=== PATIENT | male | born 1955 | race Two or more races ===

== ENCOUNTER 2017-01-25 10:55 | Emergency (ER) | payer MEDICARE, BC, OTHER ==
[2017-01-25 11:02] VITALS: BP 138/92
[2017-01-25] MEDS ORDERED: DOXYcycline CAP(*) 100 MG PO ONE (11:20)
--- NOTE | 2017-01-25 11:51 | ED ---
Nando Bailey Gabriel, scribed for Antony Oneal MD on 01/25/17 at 1120 . Bite Injury/Animal - HPI Summary HPI Summary: This patient is a 61 year old M presenting to [facility] accompanied by family with a chief complaint of a tick by his right eye since this morning. The patient rates the pain 1/10 in severity. Patient reports soreness on the side of his face around tick. - History of Current Complaint Chief Complaint: EDAnimalBite Stated Complaint: TICK IN RIGHT EYE Time Seen by Provider: 01/25/17 11:04 Hx Obtained From: Patient Onset of Injury: Resolved - doctor Jm removed the tick Pain Intensity: 1 Pain Scale Used: 0-10 Numeric Animal Control Notified: No - Allergies/Home Medications Allergies/Adverse Reactions: Allergies Allergy/AdvReac Type Severity Reaction Status Date / Time No Known Allergies Allergy Verified 01/25/17 11:02 PMH/Surg Hx/FS Hx/Imm Hx Previously Healthy: No Endocrine/Hematology History: Reports: Hx Thyroid Disease Denies: Hx Diabetes Cardiovascular History: Reports: Hx Hypertension GI History: Reports: Hx Gastroesophageal Reflux Disease History: Reports: Hx Renal Disease - 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 HERNIA REPAIR. FOOT SURGERY Hx Anesthesia Reactions: No Infectious Disease History: No Infectious Disease History: Denies: Traveled Outside the [place] in Last 30 Days - Family History Known Family History: Positive: Cardiac Disease, Diabetes - Social History Alcohol Use: Occasionally Alcohol Amount: 3 beer/month Substance Use Type: Reports: None Smoking Status (MU): Never Smoked Tobacco Have You Smoked in the Last Year: No Review of Systems Negative: Fever Positive: Other - pain near right eye Positive: Other - tick in skin near right eye All Other Systems Reviewed And Are Negative: Yes Physical Exam - Summary Physical Exam Summary: The patient is well-nourished in no acute distress and in no acute pain. The skin is warm and dry and skin color reflects adequate perfusion. HEENT: ~The head is normocephalic and atraumatic. The pupils are equal and reactive. The conjunctivae are clear and without drainage. ~Nares are patent and without drainage. ~Mouth reveals moist mucous membranes and the throat is without erythema and exudate. ~The external ears are intact. The ear canals are patent and without drainage. The tympanic membranes are intact. Neck is supple with full range of motion and non-tender. There are no carotid bruits. ~There is no neck vein distension. Respiratory: Chest is non-tender. ~Lungs are clear to auscultation and breath sounds are symmetrical and equal. Cardiovascular: Heart is regular rate and rhythm. ~There is no murmur or rub auscultated. ~~There is no peripheral edema and pulses are symmetrical and equal. Abdomen: The abdomen is soft and non-tender. ~There are normal bowel sounds heard in all four quadrants and there is no organomegaly palpated. Musculoskeletal: There is no back pain noted. ~Extremities are non-tender with full range of motion. ~There is good capillary refill. ~There is no peripheral edema or calf tenderness elicited. Neurological: Patient is alert and oriented to person, place and time. ~The patient has symmetrical motor strength in all four extremities. ~Cranial nerves are grossly intact. Deep tendon reflexes are symmetrical and equal in all four extremities. Psychiatric: The patient has an appropriate affect and does not exhibit any anxiety or depression. Triage Information Reviewed: Yes Vital Signs On Initial Exam: Initial Vitals Temp Pulse Resp BP Pulse Ox 97.0 F 79 17 138/92 100 01/25/17 10:59 01/25/17 10:59 01/25/17 10:59 01/25/17 10:59 01/25/17 10:59 Vital Signs Reviewed: Yes Diagnostics - Vital Signs Vital Signs Temp Pulse Resp BP Pulse Ox 01/25/17 10:59 97.0 F 79 17 138/92 100 - Laboratory Lab Statement: Any lab studies that have been ordered have been reviewed, and results considered in the medical decision making process. Bite Injury Course/Dx - Course Course Of Treatment: Mr. Garcia came in with a deer tick in the right lateral tarsal junction. I removed it easily with a tick remover. It was not engorged and likely there less than 36 hours but he took a dose of doxycycline which I think was reasonable to prevent any infection in that location. - Diagnoses Provider Diagnosis: Tick bite with subsequent removal of tick Discharge - Discharge Plan Condition: Stable Disposition: HOME Patient Education Materials: Doxycycline (By mouth) Referrals: Alannah Mckeon MD [Primary Care Provider] - Additional Instructions: Follow up with your primary care provider in 3 days. RETURN TO THE EMERGENCY DEPARTMENT FOR CHANGING OR WORSENING SYMPTOMS The documentation as recorded by the Nando mathis Gabriel accurately reflects the service I personally performed and the decisions made by me, Atnony Oneal MD.
== END 2017-01-25 11:57 | disposition home or self-care (01) ==
LOC: ED 10:55
DX: S00.261A Insect bite (nonvenomous) of right eyelid and periocular area, initial encounter (principal); W57.XXXA Bitten or stung by nonvenomous insect and other nonvenomous arthropods, initial encounter; Y93.9 Activity, unspecified; Y92.9 Unspecified place or not applicable
CPT/HCPCS: 99281; A9270-GY

== ENCOUNTER 2017-03-16 18:27 | Emergency (ER) | payer MEDICARE, BC, OTHER ==
[2017-03-16] MEDS ORDERED: Lidocaine 1%* 5 ML VIAL INJ ONE (19:09)
--- NOTE | 2017-03-16 19:56 | ED ---
Lower Extremity - HPI Summary HPI Summary: 61M presents with fish hook in sole of right foot today. He states he was working on fly fish hooks and must have dropped one and it got stuck in his sock. He states it felt like something was stuck in his shoe. He has neuropathy in his feet due to DM so he does not always feel something. He believes is his tetanus is up to date as he had previous fish hooks in his hands and believes last one was 3 years ago and had a tetanus then. no active bleeding to the site. 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 HERNIA REPAIR. FOOT SURGERY Hx Anesthesia Reactions: No - Immunization History Date of Tetanus Vaccine: UTD Date of Influenza Vaccine: NO Infectious Disease History: No Infectious Disease History: Denies: Traveled Outside the [place] in Last 30 Days - Family History Known Family History: Positive: Cardiac Disease, Diabetes - Social History Alcohol Use: None Alcohol Amount: 3 beer/month Substance Use Type: Reports: None Smoking Status (MU): Never Smoked Tobacco Have You Smoked in the Last Year: No Review of Systems Negative: Fever Negative: Chest Pain Negative: Shortness Of Breath Positive: Other - fish hook in sole of right foot All Other Systems Reviewed And Are Negative: Yes Physical Exam Triage Information Reviewed: Yes Vital Signs On Initial Exam: Initial Vitals Temp Pulse Resp BP Pulse Ox 98.9 F 90 20 129/88 98 03/16/17 18:34 03/16/17 18:34 03/16/17 18:34 03/16/17 18:34 03/16/17 18:34 Vital Signs Reviewed: Yes Appearance: Positive: Well-Appearing Skin: Positive: Warm, Dry, Other - fish hook in sole of right foot Head/Face: Positive: Normal Head/Face Inspection Eyes: Positive: Normal, Conjunctiva Clear Respiratory/Lung Sounds: Positive: Clear to Auscultation, Breath Sounds Present Cardiovascular: Positive: Normal, RRR Musculoskeletal: Positive: Strength/ROM Intact - right foot, Other - good pulses , capillary refill<2 secs Neurological: Positive: Normal Psychiatric: Positive: Normal - Tyree Coma Scale Coma Scale Total: 15 Procedures - Procedure Summary Procedure Summary: fish hook in right foot cleaned with betadaine apply lidocaine to area push susanna through and broke it, pulled hook back through Diagnostics - Vital Signs Vital Signs Temp Pulse Resp BP Pulse Ox 03/16/17 18:34 98.9 F 90 20 129/88 98 - Laboratory Lab Statement: Any lab studies that have been ordered have been reviewed, and results considered in the medical decision making process. Lower Extremity Course/Dx - Course Course Of Treatment: 61M presents with fish hook in sole of right foot today. He states he was working on fly fish hooks and must have dropped one and it got stuck in his sock. He states it felt like something was stuck in his shoe. He has neuropathy in his feet due to DM so he does not always feel something. He believes is his tetanus is up to date as he had previous fish hooks in his hands and believes last one was 3 years ago and had a tetanus then. no active bleeding to the site. on exam has fish hook in right foot. placed lidocaine in area and pushed susanna through and broke it and pulled hook back through. told to do warm soaks of area and to follow up with primary if notice any signs of infection. patient understand and agrees with plan. - Diagnoses Differential Diagnosis/HQI/PQRI: Positive: Cellulitis, Foreign Body, Other - laceration Provider Diagnoses: Foreign body in right foot Discharge - Discharge Plan Condition: Good Disposition: HOME Patient Education Materials: Soft Tissue Foreign Body (ED) Referrals: Alannah Mckeon MD [Primary Care Provider] - Additional Instructions: Do warm soaks of area twice a day Return to ED if develop any signs of infection such as fever or spreading redness or any new or worsening symptoms
[2017-03-16 20:06] VITALS: BP 124/82
== END 2017-03-16 20:05 | disposition home or self-care (01) ==
LOC: ED 18:27
DX: S91.341A Puncture wound with foreign body, right foot, initial encounter (principal); W22.8XXA Striking against or struck by other objects, initial encounter; Y93.9 Activity, unspecified; Y92.9 Unspecified place or not applicable; E11.40 Type 2 diabetes mellitus with diabetic neuropathy, unspecified; E07.9 Disorder of thyroid, unspecified; I10 Essential (primary) hypertension; K21.9 Gastro-esophageal reflux disease without esophagitis; N28.1 Cyst of kidney, acquired; Z90.89 Acquired absence of other organs
CPT/HCPCS: 99282

== ENCOUNTER 2018-10-22 12:18 | Observation (INO) | payer MEDICARE, BC ==
[2018-10-22 12:54] LABS: ABS Basophils 0.1 10^3/ul (0-0.2); ABS Eosinophils 0.1 10^3/ul (0-0.6); ABS Lymphocytes 1.2 10^3/ul (1.0-4.8); ABS Monocytes 0.4 10^3/ul (0-0.8); Hematocrit 47 % (42-52); Hemoglobin 16.2 g/dL (14.0-18.0); Lymphocyte % 20.7 %; Mean Corpuscular HGB Conc 35 g/dL (31-36); Mean Corpuscular Hemoglobin 33 pg (27-31); Mean Corpuscular Volume 95 fL (80-94); Platelet Count 185 10^3/uL (150-450); Red Blood Count 4.94 10^6 /uL (4.18-5.48); Red Cell Distribution Width 13 % (10-15); White Blood Count 5.7 10^3/uL (3.5-10.8)
[2018-10-22 13:05] LABS: INR 1.03 (0.82-1.09)
[2018-10-22 13:10] LABS: Albumin/Globulin Ratio 1.2 (1-3); BUN/Creatinine Ratio 22.7 (8-20); Calcium 9.2 mg/dL (8.6-10.3); EGFR African American 65.9 (>60); EGFR Non-African American 54.4 (>60); Globulin 3.3 g/dL (2-4); Potassium 4.2 mmol/L (3.5-5.0); Total Bilirubin 0.5 mg/dL (0.2-1.0); Total Protein 7.3 g/dL (6.4-8.9)
[2018-10-22 13:11] LABS: Troponin I 0.01 ng/mL (<0.04)
--- NOTE | 2018-10-22 15:27 | ED ---
HPI Chest Pain - HPI Summary HPI Summary: Patient complains of intermittent chest pain with exertion 1 month. Denies associated SOB. No active CP here in ED. Chest pain described as a mild pressure, midsternal, no radiation, improves with rest. No prior cardiac history. Denies fever, cough, sore throat, SOB, N/V/D, abdominal pain, change in urine, change in BM. Medical history is HTN, hypothyroid, neuropathy. Patient states history of stress test 15 years ago which was negative. On smoker, denies EtOH or recreational drug use. Positive family history, father had [place] at age 50. - History of Current Complaint Chief Complaint: EDChestPainROMI Time Seen by Provider: 10/22/18 14:44 Hx Obtained From: Patient Onset/Duration: Started Weeks Ago Timing: Intermittent, Lasting Minutes Initial Severity: Mild Current Severity: None Pain Intensity: 0 Pain Scale Used: 0-10 Numeric Chest Pain Location: Mid Sternal Chest Pain Radiates: No Character: Pressure/Squeezing Aggravating Factor(s): Exertion Alleviating Factor(s): Rest Associated Signs and Symptoms: Positive: Chest Pain - Allergy/Home Medications Allergies/Adverse Reactions: Allergies Allergy/AdvReac Type Severity Reaction Status Date / Time No Known Allergies Allergy Verified 10/24/18 05:21 Home Medications: Home Medications Immun Glob G(IgG)-Ifas/Glycine [Panzyga 10% (2.5 G/25 ml) Vial] 25 ml IV Q14D [History Confirmed 10/22/18] Sildenafil Citrate [Viagra] 100 mg PO DAILY PRN 10/22/18 [History Confirmed 02/28] Tadalafil [Cialis] 20 mg PO DAILY PRN 10/22/18 [History Confirmed 10/22/18] PMH/Surg Hx/FS Hx/Imm Hx Endocrine/Hematology History: Reports: Hx Thyroid Disease Denies: Hx Diabetes Cardiovascular History: Reports: Hx Hypertension Respiratory History: Denies: Hx Chronic Obstructive Pulmonary Disease (COPD) GI History: Reports: Hx Gastroesophageal Reflux Disease History: Reports: Hx Renal Disease - MULTI RENAL 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 HERNIA REPAIR. FOOT SURGERY Hx Anesthesia Reactions: No - Immunization History Date of Tetanus Vaccine: UTD Date of Influenza Vaccine: NO Infectious Disease History: No Infectious Disease History: Denies: Traveled Outside the [place] in Last 30 Days - Family History Known Family History: Positive: Cardiac Disease, Diabetes - Social History Alcohol Use: 2 beer/month Alcohol Amount: 3 beer/month Substance Use Type: Reports: None Smoking Status (MU): Never Smoked Tobacco Have You Smoked in the Last Year: No Review of Systems Constitutional: Negative Eyes: Negative ENT: Negative Positive: Chest Pain Respiratory: Negative Gastrointestinal: Negative Genitourinary: Negative Musculoskeletal: Negative Skin: Negative Neurological: Negative Psychological: Normal All Other Systems Reviewed And Are Negative: Yes Physical Exam - Summary Physical Exam Summary: Chest pain nonreproducible. Triage Information Reviewed: Yes Vital Signs On Initial Exam: Initial Vitals Temp Pulse Resp BP Pulse Ox 98.4 F 82 18 144/93 100 10/22/18 12:22 10/22/18 12:22 10/22/18 12:22 10/22/18 12:22 10/22/18 12:22 Vital Signs Reviewed: Yes Appearance: Positive: Well-Appearing Skin: Positive: Warm Head/Face: Positive: Normal Head/Face Inspection Eyes: Positive: Normal ENT: Positive: Normal ENT inspection Neck: Positive: Supple Respiratory/Lung Sounds: Positive: Clear to Auscultation Cardiovascular: Positive: Normal Abdomen Description: Positive: Nontender Musculoskeletal: Positive: Normal Neurological: Positive: Normal Psychiatric: Positive: Normal AVPU Assessment: Alert - Tyree Coma Scale Best Eye Response: 4 - Spontaneous Best Motor Response: 6 - Obeys Commands Best Verbal Response: 5 - Oriented Coma Scale Total: 15 Diagnostics - Vital Signs Vital Signs Temp Pulse Resp BP Pulse Ox 10/22/18 14:15 97.8 F 93 18 139/93 97 10/22/18 12:22 98.4 F 82 18 144/93 100 - Laboratory Lab Results: Lab Results 10/22/18 10/22/18 10/22/18 Range/Units 12:45 12:45 12:45 WBC 5.7 (3.5-10.8) 10^3/uL RBC 4.94 (4.18-5.48) 10^6 /uL Hgb 16.2 (14.0-18.0) g/dL Hct 47 (42-52) % MCV 95 H (80-94) fL MCH 33 H (27-31) pg MCHC 35 (31-36) g/dL RDW 13 (10-15) % Plt Count 185 (150-450) 10^3/uL MPV 9.0 (7.4-10.4) fL Neut % (Auto) 69.8 % Lymph % (Auto) 20.7 % [place] % (Auto) 7.6 % Eos % (Auto) 1.0 % Baso % (Auto) 0.9 % Absolute Neuts (auto) 4.0 (1.5-7.7) 10^3/ul Absolute Lymphs (auto) 1.2 (1.0-4.8) 10^3/ul Absolute Monos (auto) 0.4 (0-0.8) 10^3/ul Absolute Eos (auto) 0.1 (0-0.6) 10^3/ul Absolute Basos (auto) 0.1 (0-0.2) 10^3/ul Absolute Nucleated RBC 0.0 10^3/ul Nucleated RBC % 0.0 INR (Anticoag Therapy) 1.03 (0.82-1.09) Sodium 137 (135-145) mmol/L Potassium 4.2 (3.5-5.0) mmol/L Chloride 106 (101-111) mmol/L Carbon Dioxide 26 (22-32) mmol/L Anion Gap 5 (2-11) mmol/L BUN 30 H (6-24) mg/dL Creatinine 1.32 H (0.67-1.17) mg/dL Est GFR ( Amer) 65.9 (>60) Est GFR (Non-Af Amer) 54.4 (>60) BUN/Creatinine Ratio 22.7 H (8-20) Glucose 96 (70-100) mg/dL Calcium 9.2 (8.6-10.3) mg/dL Total Bilirubin 0.50 (0.2-1.0) mg/dL AST 24 (13-39) U/L ALT 20 (7-52) U/L Alkaline Phosphatase 63 (34-104) U/L Troponin I 0.01 (<0.04) ng/mL Total Protein 7.3 (6.4-8.9) g/dL Albumin 4.0 (3.2-5.2) g/dL Globulin 3.3 (2-4) g/dL Albumin/Globulin Ratio 1.2 (1-3) Result Diagrams: 10/22/18 12:45 10/22/18 12:45 Lab Statement: Any lab studies that have been ordered have been reviewed, and results considered in the medical decision making process. Chest Pain Course/Dx - Course Course Of Treatment: Patient complains of intermittent chest pain with exertion 1 month. Denies associated SOB. No active CP here in ED. Chest pain described as a mild pressure, midsternal, no radiation, improves with rest. No prior cardiac history. Denies fever, cough, sore throat, SOB, N/V/D, abdominal pain, change in urine, change in BM. Medical history is HTN, hypothyroid, neuropathy. Patient states history of stress test 15 years ago which was negative. On smoker, denies EtOH or recreational drug use. Positive family history, father had [place] at age 50. Vital signs within normal limits. Creatinine 1.32, patient otherwise baseline. Serial troponins negative. Labs unremarkable. EKG sinus rhythm. Chest x-ray unremarkable. Heart score 6. Patient admitted to hospitalist - Diagnoses Provider Diagnoses: Exertional angina Discharge - Sign-Out/Discharge Documenting (check all that apply): Patient Departure Patient Received Moderate/Deep Sedation with Procedure: No - Discharge Plan Condition: Fair Disposition: ADMITTED TO [facility] - Billing Disposition and Condition Condition: FAIR Disposition: Admitted to [facility] - Attestation Statements Provider Attestation: I was available for consultation for this patient. I did not evaluate the patient or participate in any medical decision making or disposition decisions unless I am specifically named in the chart as having consulted on the patient. If I have consulted on the patient, please see my own ED note on the patient encounter. Radha Vazquez MD
[2018-10-22] MEDS ORDERED: Naproxen TAB* 375 MG PO PRN (16:33)
--- NOTE | 2018-10-22 16:41 | ADMNOTE ---
Subjective Date of Service: 10/22/18 Interval History: ADMISSION HISTORY AND PHYSICAL EXAM: Allergies Allergy/AdvReac Type Severity Reaction Status Date / Time No Known Allergies Allergy Verified 08/22/18 08:06 Home Medications Medication Instructions Recorded Confirmed Type Levothyroxine TAB* [Synthroid TAB*] 125 mcg PO DAILY 01/17/12 08/22/18 History Omeprazole CAP (NF) [Prilosec CAP*] 20 mg PO DAILY 01/17/12 08/22/18 History Losartan TAB* [Cozaar TAB*] 50 mg PO DAILY 01/29/15 08/22/18 History Naproxen TAB* [Naprosyn 375 mg 375 mg PO Q6H PRN 05/10/17 08/22/18 History TAB*] Cholecalciferol (Vitamin D3) 2,000 unit PO DAILY 10/25/17 08/22/18 History [Vitamin D3] Gabapentin 300 mg PO SEE INSTRUCTIONS PRN 04/17/18 08/22/18 History Hemp Oil 2 tbsp PO DAILY 08/22/18 History HPI: For the past month the patient consistently experiences lower sternal pressure when he walks his dog up a hill. He does not stop walking and the pressure subsides when he reaches the crest of the hill. No associated sx's. This is the heaviest exertion that he does. Family History: Findings - Father had [place] age 50, age 66 of [place]. Mother A& W. 2 younger sibs A&W. Social History: Findings - Lives with his who is his SDM. Never smoked. 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 Past Medical History: Findings - BL hernia repairs. Sensory neuropathy treated with IVIG q [address] Ibanez. HTN, hypothyroid. Review of Systems - Measurements Intake and Output: Intake and Output Last 24 Hours 10/20/18 10/21/18 10/22/18 10/23/18 06:59 06:59 06:59 06:59 Weight 210 lb - Review of Systems Constitutional Symptoms: Negative: Weight Gain, Weight Loss, Weakness, Fatigue, Fever, Night Sweats, Unexplained Falls, Other Dermatology: Positive: Normal HEENT: Positive: Normal Eyes: Positive: Normal Thyroid: Positive: Primary Hypothyroidism Cardiology: Positive: Chest Pain Gastroenterology: Positive: Normal Genital - Urinary: Positive: Normal Musculoskeletal: Negative: Joint Pain, Joint Stiffness, Arthritis, Osteoporosis, Low Back Pain , Sciatica, Joint Deformities, Kyphoscoliosis, Other Endocrinology: Positive: Thyroid Problems Hematologic/Lymphatic: Negative: Anemia, Easy Bruising, Hx Leukemia, Hx Lymphoma, Use of Anticoagulant, Use of Antiplatelet Drugs, Other Neurology: Positive: Other - neuropathy Psychiatry: Positive: Normal Allergic/Immunologic: Negative: Hx Anaphylaxis, Hx Angioedema, Hx Environmental, Hx Seasonal, Asthma, Hx HIV, Immunocompromise, Swollen Glands LymphNodes, Other Objective Active Medications: Gabapentin (Neurontin Cap(*)) 300 mg PO SEE INSTRUCTIONS PRN PRN Reason: PAIN Levothyroxine Sodium (Synthroid Tab*) 125 mcg PO DAILY MATILDA Losartan Potassium (Cozaar Tab*) 50 mg PO DAILY MATILDA Naproxen (Naprosyn Tab*) 375 mg PO Q6H PRN PRN Reason: PAIN Omeprazole (Prilosec Cap* (Nf)) 20 mg PO DAILY MATILDA Vital Signs - 8 hr 10/22/18 10/22/18 10/22/18 12:22 14:15 14:44 Temperature 98.4 F 97.8 F Pulse Rate 82 93 77 Respiratory 18 18 Rate Blood Pressure 144/93 139/93 133/95 (mmHg) O2 Sat by Pulse 100 97 98 Oximetry 10/22/18 10/22/18 10/22/18 14:45 15:00 15:14 Temperature Pulse Rate 76 80 86 Respiratory 13 19 Rate Blood Pressure 128/96 (mmHg) O2 Sat by Pulse 98 92 95 Oximetry 10/22/18 10/22/18 15:45 16:00 Temperature Pulse Rate 80 Respiratory 11 22 Rate Blood Pressure 145/114 (mmHg) O2 Sat by Pulse 97 Oximetry Oxygen Devices in Use Now: None Appearance: Alert, partly up on ED stretcher. In good spirits. Looks comfortable. Eyes: No Scleral Icterus Neck: No Thyroid Enlargement, Masses Respiratory: Symmetrical Chest Expansion and Respiratory Effort, Clear to Auscultation, Clear to Percussion Cardiovascular: NL Sounds; No Murmurs; No JVD, RRR, No Edema, - Abdominal: NL Sounds; No Tenderness; No Distention, No Hepatosplenomegaly, - Extremities: No Edema, No Clubbing, Cyanosis, - Skin: No Rash or Ulcers, No Nodules or Sclerosis, - Neurological: Alert and Oriented x 3, NL Sensation Result Diagrams: 10/22/18 12:45 10/22/18 12:45 Additional Lab and Data: Lab Results 10/22/18 10/22/18 10/22/18 Range/Units 12:45 12:45 12:45 WBC 5.7 (3.5-10.8) 10^3/uL RBC 4.94 (4.18-5.48) 10^6 /uL Hgb 16.2 (14.0-18.0) g/dL Hct 47 (42-52) % MCV 95 H (80-94) fL MCH 33 H (27-31) pg MCHC 35 (31-36) g/dL RDW 13 (10-15) % Plt Count 185 (150-450) 10^3/uL MPV 9.0 (7.4-10.4) fL Neut % (Auto) 69.8 % Lymph % (Auto) 20.7 % [place] % (Auto) 7.6 % Eos % (Auto) 1.0 % Baso % (Auto) 0.9 % Absolute Neuts (auto) 4.0 (1.5-7.7) 10^3/ul Absolute Lymphs (auto) 1.2 (1.0-4.8) 10^3/ul Absolute Monos (auto) 0.4 (0-0.8) 10^3/ul Absolute Eos (auto) 0.1 (0-0.6) 10^3/ul Absolute Basos (auto) 0.1 (0-0.2) 10^3/ul Absolute Nucleated RBC 0.0 10^3/ul Nucleated RBC % 0.0 INR (Anticoag Therapy) 1.03 (0.82-1.09) Sodium 137 (135-145) mmol/L Potassium 4.2 (3.5-5.0) mmol/L Chloride 106 (101-111) mmol/L Carbon Dioxide 26 (22-32) mmol/L Anion Gap 5 (2-11) mmol/L BUN 30 H (6-24) mg/dL Creatinine 1.32 H (0.67-1.17) mg/dL Est GFR ( Amer) 65.9 (>60) Est GFR (Non-Af Amer) 54.4 (>60) BUN/Creatinine Ratio 22.7 H (8-20) Glucose 96 (70-100) mg/dL Calcium 9.2 (8.6-10.3) mg/dL Total Bilirubin 0.50 (0.2-1.0) mg/dL AST 24 (13-39) U/L ALT 20 (7-52) U/L Alkaline Phosphatase 63 (34-104) U/L Troponin I 0.01 (<0.04) ng/mL Total Protein 7.3 (6.4-8.9) g/dL Albumin 4.0 (3.2-5.2) g/dL Globulin 3.3 (2-4) g/dL Albumin/Globulin Ratio 1.2 (1-3) Assess/Plan/Problems-Billing Assessment: - Patient Problems (1) Chest discomfort Current Visit: Yes Status: Acute Code(s): R07.89 - OTHER CHEST PAIN SNOMED Code(s): 293746014 Comment: Exertional chest pressure. Second troponin, tele, exercise nuclear stress test. (2) Sensory polyneuropathy Current Visit: Yes Status: Acute Code(s): G60.8 - OTHER HEREDITARY AND IDIOPATHIC NEUROPATHIES SNOMED Code(s): 79031495 Comment: IVIG per Dr. Ibanez as outpt. Continue gabapentin. (3) HTN (hypertension) Current Visit: Yes Status: Acute Code(s): I10 - ESSENTIAL (PRIMARY) HYPERTENSION SNOMED Code(s): 98437516 Comment: Continue losartan. (4) Hypothyroid Current Visit: Yes Status: Acute Code(s): E03.9 - HYPOTHYROIDISM, UNSPECIFIED SNOMED Code(s): 86458163 Comment: continue levothyroxine. add on TSH
[2018-10-22 17:48] LABS: TSH (Thyroid Stimulating Horm) 0.92 mcIU/mL (0.34-5.60)
[2018-10-22] MEDS ORDERED: Gabapentin CAP(*) 300 MG PO PRN (21:00)
[2018-10-22] MEDS ORDERED: Pantoprazole TAB * 40 MG TAB PO SCH (21:00)
[2018-10-22] MEDS ORDERED: Losartan TAB* 25 MG PO SCH (21:00)
[2018-10-23] MEDS ORDERED: Levothyroxine TAB* 125 MCG TAB PO SCH (06:00)
[2018-10-23 12:12] VITALS: BP 119/80
--- NOTE | 2018-11-11 12:44 | DS ---
CC: Dr. Mckeon; Dr. Ibanez* DISCHARGE SUMMARY: DATE OF ADMISSION: 10/22/18 DATE OF DISCHARGE: 10/23/18 PRIMARY CARE PROVIDER: Dr. Mckeon. PRINCIPAL DIAGNOSIS: Probable non-cardiac chest pain. SECONDARY DIAGNOSES: 1. Sensory neuropathy. 2. Hypertension. 3. Hypothyroidism. DISCHARGE MEDICATIONS: 1. Amlodipine 2.5 mg p.o. daily (new). 2. Omeprazole 20 mg p.o. daily. 3. Levothyroxine 125 mcg p.o. daily. 4. Vitamin D 2000 units p.o. daily. 5. Hemp oil 2 tablespoons p.o. daily. 6. Cialis 20 mg p.o. daily p.r.n. ED. 7. Sildenafil 100 mg p.o. daily p.r.n. ED. 8. Immunoglobulin as per Dr. Ibanez. 9. Losartan 25 mg p.o. daily (reduced dose). HOSPITAL COURSE: Mr. Garcia is a 63-year-old male who presented to the emergency room on 10/22/18 with complaints of chest pain. For the last 1 month , the patient consistently experiences low sternal chest pressure when he is ambulating his dog up a hill. He states he does 2 loops. The first time up the hill, the pain is more severe. He does state he is able to continue walking up the hill despite the chest discomfort and when he reaches the top, the discomfort is typically better than when he is at the lower end of the hill. The second time up the hill, the pain is not as bad. The patient underwent stress testing. The EKG portion of the stress test was felt to be indeterminant due to the patient developing pain with ambulation on the treadmill. It was noted that he was not on any antianginals. The nuclear imaging was felt to be low risk with no fixed or reversible perfusion defects identified. Due to the negative stress test, it was felt the patient was stable for discharge home. I did cut his losartan and added amlodipine. PHYSICAL EXAMINATION: On the day of discharge, the patient is awake, alert, and oriented, sitting up in bed, in no acute distress. Cardiac: Normal S1, S2. Regular rate and rhythm. I do not appreciate any murmurs. Pulmonary: Lungs are clear to auscultation bilaterally. Abdomen: Bowel sounds present. Abdomen is soft, nontender, nondistended. Musculoskeletal: There is no cyanosis or clubbing of the digits. There is full active range of motion of all 4 extremities. FOLLOWUP CONCERNS: The patient is being discharged home today, 10/23/18. ACTIVITY LEVEL: As tolerated. DIET: Heart healthy. CONDITION ON DISCHARGE: Stable. DISCHARGE INSTRUCTIONS: The patient has been instructed to return to the emergency room if he has any new or worsening chest discomfort. We reviewed the fact that negative stress test does not completely rule out the possibility of underlying nonsignificant coronary artery disease that at any point plaques could rupture and he could develop an acute IL. TIME SPENT: 25 minutes was spent on this discharge. [id number]/[facility] #: [id number] MEDINA
== END 2018-10-23 14:01 | disposition home or self-care (01) ==
LOC: ED 12:18 → MEDTELE 16:29
PROVIDERS: ADMIT Internal Medicine; ATTEND Hospitalist
DX: R07.89 Other chest pain (principal); G60.8 Other hereditary and idiopathic neuropathies; I10 Essential (primary) hypertension; E03.9 Hypothyroidism, unspecified; Z79.899 Other long term (current) drug therapy; K21.9 Gastro-esophageal reflux disease without esophagitis; G62.9 Polyneuropathy, unspecified; Z82.49 Family history of ischemic heart disease and other diseases of the circulatory system
CPT/HCPCS: 36415; 71045; 78452; 80053; 84443; 84484; 85025; 85610; 93005; 93017; 99284; A9270-GY; A9502; G0378

== ENCOUNTER 2018-10-24 04:59 | Inpatient (IN) | payer MEDICARE, BC ==
[2018-10-24] MEDS ORDERED: Ondansetron INJ* 2 MG/ML VIAL IV ONE (05:13)
[2018-10-24] MEDS ORDERED: NS 0.9% 1000 ML** 1,000 ML IV ONE ×2 (05:13→07:54)
[2018-10-24] MEDS ORDERED: Ondansetron INJ* 2 MG/ML VIAL ONE (05:15)
--- NOTE | 2018-10-24 05:25 | ED ---
HPI Chest Pain - HPI Summary HPI Summary: This is a 63 y/o man BIBA with c/o 8 hrs of fairly severe and continuous non radiating sharp pain in the mid upper chest, associated with mild nausea and one episode of emesis, though the nausea and retching worsened significantly on arrival to the ED. There has been no SOB, no exacerbating or remitting factors. Pain began after dinner, no unusual food per pt. Pt denies any abdominal pain, diarrhea, or other associated symptoms. He was recently admitted here Monday afternoon for chest pain and had a nuclear stress yesterday which was negative, and he was discharged yesterday afternoon feeling generally well. The present pain is quite different than that which brought him to the hospital on Monday, that pain was intermittent, associated with activity, was lower in the chest and described as a tightness. He has no h/o significant abdominal problems in the past. - History of Current Complaint Chief Complaint: EDChestPainROMI Time Seen by Provider: 10/24/18 05:13 Pain Intensity: 8 - Allergy/Home Medications Allergies/Adverse Reactions: Allergies Allergy/AdvReac Type Severity Reaction Status Date / Time No Known Allergies Allergy Verified 10/26/18 20:22 Home Medications: Home Medications Gabapentin 600 mg PO BEDTIME PRN 10/25/18 [History Confirmed 10/25/18] PMH/Surg Hx/FS Hx/Imm Hx Endocrine/Hematology History: Reports: Hx Thyroid Disease Denies: Hx Diabetes Cardiovascular History: Reports: Hx Hypertension Denies: Hx Coronary Artery Disease, Hx Hypercholesterolemia, Hx Myocardial Infarction, Hx Pacemaker/ICD, Hx Valvular Heart Disease Respiratory History: Denies: Hx Asthma, Hx Chronic Obstructive Pulmonary Disease (COPD) GI History: Reports: Hx Gastroesophageal Reflux Disease History: Reports: Hx Renal Disease - MULTI RENAL CYSTS ON LEFT KIDNEY Denies: Hx Chronic Renal Failure, Hx Dialysis Musculoskeletal History: Denies: Hx Arthritis, Hx Osteoporosis Sensory History: Reports: Hx Contacts or Glasses - GLASSES Denies: Hx Deafness, Hx Hearing Aid Opthamlomology History: Reports: Hx Contacts or Glasses - GLASSES Neurological History: Reports: Other Neuro Impairments/Disorders - CIDP Denies: Hx Dementia - Surgical History Surgery Procedure, Year, and Place: TONSILLECTOMY. HERNIA REPAIR. FOOT SURGERY Hx Anesthesia Reactions: No - Immunization History Date of Tetanus Vaccine: UTD Date of Influenza Vaccine: NO Infectious Disease History: No Infectious Disease History: Denies: Traveled Outside the [place] in Last 30 Days - Family History Known Family History: Positive: Cardiac Disease, Diabetes - Social History Alcohol Use: Occasionally Alcohol Amount: 3 beer/month Substance Use Type: Reports: None Smoking Status (MU): Never Smoked Tobacco Have You Smoked in the Last Year: No Review of Systems Negative: Fever, Chills Negative: Epistaxis, Sore Throat Negative: Palpitations Negative: Shortness Of Breath, Cough Positive: Vomiting, Nausea. Negative: Abdominal Pain, Diarrhea All Other Systems Reviewed And Are Negative: Yes Physical Exam - Summary Physical Exam Summary: General: This is a well-developed, well- nourished man lying on the stretcher in no apparent distress. He is actively retching and appears quite uncomfortable. HEENT:Extraocular movements are intact. Conjunctiva are normal without pallor. Pharynx is clear without exudate or swelling. Dentition is unremarkable. There is no sign of head trauma. Neck: Supple, no adenopathy noted. Lungs: Lungs are clear to auscultation. There are no signs of respiratory distress. Coronary: Peripheral perfusion is good. Heart sounds are regular, a normal S1 and S2 were auscultated. There is no gallop rhythm, nor any pathological sounded murmurs. Abdomen: The abdomen appears normal and is nondistended. Normoactive bowel sounds are present. On palpation, there is no significant tenderness, nor any guarding or rebound. There is no hepatosplenomegaly, nor any masses. Genitourinary: Deferred Back: Good range of motion is observed. There are no surface abnormalities nor any scoliosis. Extremities: Good range of motion was observed in all 4 extremities. There is no sign of any trauma to the extremities. Neurologic: The patient is awake and alert, speech is fluent and conversation is appropriate. There are no focal motor abnormalities. Cranial nerves are grossly intact. There is no ataxia observed. Skin: Warm and dry, not diaphoretic Psychiatric. The patients affect is felt to be normal and appropriate. There is no sign of any hallucinations or delusions, or any other signs of psychosis Vital Signs On Initial Exam: Initial Vitals Temp Pulse Resp BP Pulse Ox 36.3 C 70 18 162/109 97 10/24/18 05:02 10/24/18 05:02 10/24/18 05:02 10/24/18 05:02 10/24/18 05:02 Diagnostics - Vital Signs Vital Signs Temp Pulse Resp BP Pulse Ox 10/24/18 05:02 36.3 C 70 18 162/109 97 - Laboratory Result Diagrams: 10/25/18 04:58 10/25/18 04:58 Lab Statement: Any lab studies that have been ordered have been reviewed, and results considered in the medical decision making process. - EKG No standard instances Cardiac Rate: NL EKG Rhythm: Sinus Rhythm ST Segment: Normal Ectopy: None EKG Comparison: No Significant Change Chest Pain Course/Dx - Course Course Of Treatment: This is a 63 y/o man with a negative nuclear stress test yesterday who returns with persistent more severe pain associated with nausea and vomiting, and now with a troponin bump. EKG is non ischemic. Pain initially resolved with zofran and MS though seems to be coming back. Case d/w Dr. Olguin , recommends heparin and nitrates, he will arrange for patient to be seen and likely have cardiac cath later today. - Diagnoses Provider Diagnoses: Non-STEMI (non-ST elevated myocardial infarction) - Provider Notifications Discussed Care Of Patient With: Judie Mary Time Discussed With Above Provider: 06:40 Instructed by Provider To: Admit As Inpatient - Critical Care Time Critical Care Time: 30-74 min Discharge - Sign-Out/Discharge Documenting (check all that apply): Patient Departure Patient Received Moderate/Deep Sedation with Procedure: No - Discharge Plan Condition: Stable Disposition: ADMITTED TO [facility] - Billing Disposition and Condition Condition: STABLE Disposition: Admitted to [facility] - Attestation Statements Document Initiated by Scribe: Faye
[2018-10-24] MEDS ORDERED: Morphine 4 MG/ML VIAL (1 ml) 4 MG/ML VIAL IV ONE ×2 (05:26→07:54)
[2018-10-24 05:57] LABS: ABS Lymphocytes 0.8 10^3/ul (1.0-4.8); ABS Monocytes 0.6 10^3/ul (0-0.8); ABS Neutrophils 7.7 10^3/ul (1.5-7.7); Eosinophil % 0.3 %; Hematocrit 49 % (42-52); Hemoglobin 16.6 g/dL (14.0-18.0); Lymphocyte % 8.9 %; Mean Corpuscular HGB Conc 34 g/dL (31-36); Mean Corpuscular Hemoglobin 32 pg (27-31); Mean Corpuscular Volume 95 fL (80-94); Mean Platelet Volume 9.4 fL (7.4-10.4); Platelet Count 198 10^3/uL (150-450); Red Blood Count 5.15 10^6 /uL (4.18-5.48); Red Cell Distribution Width 13 % (10-15); White Blood Count 9.2 10^3/uL (3.5-10.8)
[2018-10-24 06:18] LABS: ALT 18 U/L (7-52); AST 23 U/L (13-39); Albumin 4.1 g/dL (3.2-5.2); Albumin/Globulin Ratio 1.2 (1-3); Alkaline Phosphatase 65 U/L (34-104); Anion Gap 7 mmol/L (2-11); BUN/Creatinine Ratio 22.8 (8-20); Blood Urea Nitrogen 29 mg/dL (6-24); CO2 Carbon Dioxide 25 mmol/L (22-32); Calcium 9.2 mg/dL (8.6-10.3); Chloride 106 mmol/L (101-111); EGFR African American 68.9 (>60); EGFR Non-African American 56.9 (>60); Globulin 3.3 g/dL (2-4); Glucose 141 mg/dL (70-100); Potassium 4.1 mmol/L (3.5-5.0); Sodium 138 mmol/L (135-145); Total Protein 7.4 g/dL (6.4-8.9)
[2018-10-24 06:26] LABS: Troponin I 0.35 ng/mL (<0.04)
[2018-10-24] MEDS ORDERED: Nitro 2% OINT* (Nitroglycerin) 1 INCH/PAK PAK TOPICAL ONE (06:36)
[2018-10-24] MEDS ORDERED: Heparin DRIP 25,000 UNITS(*) 25,000 UNITS/500 ML BAG IV SCH (06:45)
[2018-10-24] MEDS ORDERED: Heparin VIAL(*) 5000 UNITS/ML VIAL (FIVE THOUSAND) IV SCH (07:00)
--- NOTE | 2018-10-24 07:57 | ED ---
Progress - Progress Note Progress Note: 7:56am: Pt rang call [facility] - increase in left sided chest discomfort BP 91/64 Will recheck EKG [address] Mary updated Course/Dx - Course Course Of Treatment: This is a 63 y/o man with a negative nuclear stress test yesterday who returns with persistent more severe pain associated with nausea and vomiting, and now with a troponin bump. EKG is non ischemic. Pain initially resolved with zofran and MS though seems to be coming back. Case d/w Dr. Olguin , recommends heparin and nitrates, he will arrange for patient to be seen and likely have cardiac cath later today. - Diagnoses Provider Diagnoses: Non-STEMI (non-ST elevated myocardial infarction) - Provider Notifications Time Discussed With Above Provider: 06:40 Instructed by Provider To: Admit As Inpatient - Critical Care Time Critical Care Time: 30-74 min Discharge - Sign-Out/Discharge Documenting (check all that apply): Patient Departure Patient Received Moderate/Deep Sedation with Procedure: No - Discharge Plan Condition: Guarded Disposition: ADMITTED TO [facility] Referrals: Alannah Mckeon MD [Primary Care Provider] - - Billing Disposition and Condition Condition: GUARDED Disposition: Admitted to [facility]
[2018-10-24] MEDS ORDERED: Heparin for STEMI(*) 5,000 UNITS/ML 1 ML VIAL IV ONE (07:58)
[2018-10-24 08:45] LABS: Troponin I 0.52 ng/mL (<0.04)
[2018-10-24] MEDS ORDERED: Aspirin TAB* 325 MG PO ONE (08:55)
[2018-10-24] MEDS ORDERED: Atorvastatin* 80 MG TAB PO ONE (08:58)
[2018-10-24] MEDS ORDERED: Aspirin 81 mg CHEW TAB* 81 MG TAB.CHEW ONE (09:09)
[2018-10-24] MEDS ORDERED: Metoprolol Tartrate TAB* 25 MG ONE (09:09)
[2018-10-24] MEDS: Metoprolol Tartrate TAB* 25 MG PO SCH ×2 (09:11→19:53)
[2018-10-24] MEDS ORDERED: Aspirin 81 mg CHEW TAB* 81 MG TAB.CHEW PO ONE (09:12)
[2018-10-24] MEDS ORDERED: NS 0.9% 1000 ML** 1,000 ML IV SCH ×2 (09:15→11:00)
[2018-10-24] MEDS ORDERED: Ticagrelor* 90 MG TAB PO ONE (09:18)
[2018-10-24] MEDS ORDERED: Midazolam* 1 MG/ML 5 ML VIAL (5 MG) ONE (09:22)
[2018-10-24] MEDS ORDERED: Heparin(*) 1000 UNIT/ML 10 ML VIAL CATH LAB IV ONE (09:22)
[2018-10-24] MEDS ORDERED: fentaNYL* 50 MCG/ML 2 ML VIAL (100 MCG VIAL) ONE (09:22)
[2018-10-24] MEDS ORDERED: VERAPAMIL 2.5 MG/ML 2 ML VIAL ** 5 mg/2 ml ONE (09:22)
[2018-10-24] MEDS ORDERED: Lidocaine 1% INJ* 10 MG/ML 30 ML SDV ONE (09:23)
[2018-10-24] MEDS ORDERED: Heparin 2 UNITS/ML IVPREMIX* 3,000 UNIT/1,500 ML BAG IV ONE (09:23)
[2018-10-24] MEDS ORDERED: nitroGLYCERIN DRIP* 25,000 MCG/250 ML BTL ONE (09:23)
[2018-10-24] MEDS ORDERED: Iodixanol 320 (CONTRAST) 100 ML SDV ONE ×2 (09:23→10:13)
--- NOTE | 2018-10-24 09:25 | CONSULT ---
Subjective Date of Service: 10/24/18 - CC: CP, elevated troponins Interval History: 63 yo male no past cardiac hx. 1 month hx LOU, underwent stress test yesterday and no evidence of ischemia. D/c'd then developed CP last night at rest, N/V x2 and diaphoresis. Returned to ED this AM with a mild elevation in troponins. The patient received heparin, IVF, NTG paste and morphine in ED, pain better but not resolved. Family History: Unchanged from Admission - Father [place] 50's and 60's. Social History: Unchanged from Admission - Non smoker, was a smoker. Past Medical History: Unchanged from Admission - + HTN, Hyperthyroid s/p radioactive iodine, now on thyroid replacement. Peripheral neuropathy. Erectile dysfunction. Denies DM, dyslipidemia. Medications Active Medications: Aspirin (Aspirin 81 Mg Chew Tab*) 81 mg PO DAILY [facility] Heparin Sodium (Porcine) (Heparin Vial(*)) 0 units IV .PER PROTOCOL [facility] Last Admin: 10/24/18 08:03 Dose: 4,000 units Heparin Sodium/Dextrose (Heparin Drip 25,000 Units(*)) 25,000 units in 500 mls @ 0 mls/hr IV PER RATE [facility]; Protocol Last Admin: 10/24/18 08:03 Dose: 20 mls/hr Sodium Chloride (Ns 0.9% 1000 Ml) 1,000 mls @ 100 mls/hr IV PER RATE [facility] Metoprolol Tartrate (Lopressor Tab*) 12.5 mg PO BID [facility] Last Admin: 10/24/18 09:11 Dose: 12.5 mg Home Medications: Levothyroxine TAB* [Synthroid 100 MCG TAB*] 125 mcg PO DAILY 01/17/12 [History Confirmed 10/24/18] Omeprazole CAP (NF) [Prilosec CAP* 20 MG] 20 mg PO DAILY 01/17/12 [History Confirmed 10/24/18] Cholecalciferol (Vitamin D3) [Vitamin D3] 2,000 unit PO DAILY 10/25/17 [History Confirmed 10/24/18] Hemp Oil 2 tbsp PO DAILY 08/22/18 [History Confirmed 10/24/18] Immun Glob G(IgG)-Ifas/Glycine [Panzyga 10% (2.5 G/25 ml) Vial] 25 ml IV Q14D [History Confirmed 10/24/18] Sildenafil Citrate [Viagra] 100 mg PO DAILY PRN 10/22/18 [History Confirmed ] Tadalafil [Cialis] 20 mg PO DAILY PRN 10/22/18 [History Confirmed 10/24/18] Losartan TAB* [Cozaar TAB*] 25 mg PO DAILY #0 10/23/18 [Rx Confirmed 10/24/18] amLODIPine TAB* [Norvasc 5 mg TAB*] 2.5 mg PO DAILY #15 tab 10/23/18 [Rx Confirmed 10/24/18] Review of Systems - Measurements Intake and Output: Intake and Output Last 24 Hours 10/22/18 10/23/18 10/24/18 10/25/18 04:59 04:59 04:59 04:59 Intake Total 1000 Balance 1000 Weight 210 lb Intake: IV Fluids 1000 - Review of Systems General Comments: + N/V, diaphoresis and CP, left upper chest. Negative for recent travel, orthopnea, PND, no recent changes in medications. Review of Systems Statement: All other review of systems negative, unless stated above. Objective Vital Signs: Temp Pulse Resp BP Pulse Ox 97.4 F 84 12 120/80 98 10/24/18 05:02 10/24/18 08:38 10/24/18 08:38 10/24/18 08:38 10/24/18 08:38 Oxygen Devices in Use Now: Nasal Cannula Appearance: Tall, broad shouldered, appears uncomfortable. Eyes: No Scleral Icterus, PERRLA Ears/Nose/Mouth/Throat: Clear Oropharnyx, Mucous Membranes Moist Neck: NL Appearance and Movements; NL JVP, Trachea Midline Respiratory: Symmetrical Chest Expansion and Respiratory Effort, Clear to Auscultation Cardiovascular: NL Sounds; No Murmurs; No JVD, RRR, - - Strong radial and PT pulses, symetrical. Abdominal: NL Sounds; No Tenderness; No Distention, No Hepatosplenomegaly Extremities: No Edema, No Clubbing, Cyanosis Skin: No Rash or Ulcers, No Nodules or Sclerosis Neurological: Alert and Oriented x 3 Lines/Tubes/Other Access: Clean, Dry and Intact Peripheral IV Laboratory Results: 10/24/18 05:36 10/24/18 05:36 APTT 29.9 seconds (26.0-38.0) 10/24/18 07:11 Total Bilirubin 0.60 mg/dL (0.2-1.0) 10/24/18 05:36 AST 23 U/L (13-39) 10/24/18 05:36 ALT 18 U/L (7-52) 10/24/18 05:36 Alkaline Phosphatase 65 U/L (34-104) 10/24/18 05:36 Total Protein 7.4 g/dL (6.4-8.9) 10/24/18 05:36 Albumin 4.1 g/dL (3.2-5.2) 10/24/18 05:36 Globulin 3.3 g/dL (2-4) 10/24/18 05:36 Albumin/Globulin Ratio 1.2 (1-3) 10/24/18 05:36 10/24/18 10/24/18 05:36 08:10 Troponin I 0.35 H* 0.52 H* LDL cholesterol 124 2014 Diagnostic Imaging: Patient Name: CHARLY MOORE Medical Record#: [id number] Ordering Physician: Bal Ryan MD Acct.#: [id number] : 1955 Age: 63 Sex: M Location: [address] [place] [address]/TELEMETRY Exam Date: 10/23/18 ADM Status: ADM Natan Order Information: NM MYOCARDIAL MULTI RESTING Accession Number: [id number] CPT: 51427 Indication: Chest pressure. Mild perfusion scan was performed utilizing 1 day protocol. Rest myocardial perfusion was performed after intravenous injection of 10.8 mCi of technetium 99m tetrofosmin. Treadmill stress study was performed and 25.8 mCi of technetium 99 and tetrofosmin was injected for the stress portion of study. The maximum heart rate achieved was 86% of the maximum predicted value. There is homogeneous distribution of the radiotracer throughout the left ventricle. There is no evidence of fixed or reversible perfusion defect identified. Ejection fraction at stress is 65%. Evaluation of wall motion demonstrates no focal wall motion abnormality. IMPRESSION: No fixed or reversible perfusion defect is identified. ASSESSMENT: Low risk Based on imaging criteria from ACC/AHA 2002 Guideline Update for the Management of Patients With Chronic Stable Angina Table 23. Noninvasive Risk Stratification. Reference. <Electronically signed by Tabitha Guillory MD in OV> 10/23/18 1119 Dictated By: Tabitha Guillory MD Dictated Date/Time: 10/23/18 1119 Transcribed Date/Time: 10/23/18 1101 Copy to: CC:Judie Mary DO; Bal Ryan MD; Alannah Mckeon MD Imaging - [facility] Imaging - [facility] Imaging - [facility] [address] [place], [place] [id number] [place] [id number] ph ([phone]) ph ([phone]) ph ([phone]) This report is only to be considered final once signed by the Provider(s) as displayed in the "<Electronically Signed by >" field (s). Absence of a signature indicates the report is in a draft status and still needs to be finalized. In the event this document was created by someone other than the signing Provider, the individual initiating the document will be listed in the "Entered by:" or "Dictated by:" lares. 1 of 1 CXR 10/24/18: NO ACUTE DISEASE. EKG Data: nsr, 80's, subtle inferior wall ST changes, abnormal coving, increase ST III, subtle lateral changes c/w 2014 and ECG's earlier this week. Assessment/Plan 63 yo male with crescendo angina to NQMI. CAD risks include FHx, HTN, passive smoking, hyperglycemia/possible occult or new DM. Has mild CKD. I recommended cardiac catheterization due to elevated troponins and new ECG changes. Bedside echo in ED revealed a small focal area mid post wall, preserved EF. For medical management: On Heparin gtt and IVF. Added low dose beta fiorella, titrate as vitals allow (SBP 90 earlier in ED). Added ASA. Brilinta ordered as per Dr Zamudio Statin added and full updated lipid panel pending. HgB A1c added by hospitalist, at the very least will make changes in diet. Additional recommendations will be made post cardiac catheterization. Counseling and/or Coordination of Care Minutes: 1 hour acute care
[2018-10-24 09:32] LABS: Cholesterol 156 mg/dL; HDL Cholesterol 34.1 mg/dL; LDL Cholesterol 102 mg/dL; Triglycerides 100 mg/dL
[2018-10-24] MEDS ORDERED: Bivalirudin(*) 250 MG VIAL ONE (09:52)
[2018-10-24] MEDS ORDERED: Nitroglycerin TAB 0.4 MG* 0.4 MG TAB SL PRN (10:47)
--- NOTE | 2018-10-24 10:51 | ECHO ---
*[facility]* [place] [address] Fax #: [phone] Limited Transthoracic Echocardiogram Patient: Isai Garcia : 1955 Study Date: 10/24/2018 Age: 63 Gender: M HR: 80 bpm Height: 71 in /180.3 cm BSA: 2.21 m^2 Weight: 210 lb /95.5 kg BMI: 29.4 kg/m^2 *[employer]: * Kalina Delgado RDCS RN *Referring Physician: * Judie MaryReading Physician: * Avelina Martinez MD Indications: Myocardial Infarction (new). History: Hypothyroidism. Risk factors: Hypertension. Family history is significant for coronary artery disease. Conclusions Summary: - Procedure narrative: The exam was limited as the patient was being urgently transferred to the Cardiac Physician Office Rep and positioning limited. The study was technically limited due to difficult parasternal imaging and body habitus. - Mitral valve: There is trace to mild regurgitation. - Ascending aorta: The ascending aorta measures 4.1 cm (transverse) and is mild to moderately dilated. - No prior echocardiogram to compare. Study data: Transthoracic echocardiogram, limited study. Procedure: Transthoracic echocardiography was performed under the direction of Dr. Martinez. The exam was limited as the patient was being urgently transferred to the Cardiac Physician Office Rep. Image quality was fair. The study was technically limited due to difficult parasternal imaging and body habitus. Location: Bedside. Patient status: Inpatient. Patient room number: ED 5. Rhythm: Normal sinus rhythm. Findings Left ventricle: The estimated ejection fraction is 50-55%. Regional wall motion abnormalities: Hypokinesis of the posterior-lateral myocardium. Focal area seen apical to the papillary muscle in 3 and 5 chamber views. Mitral valve: The posterior mitral valve annulus appears mildly calcified. The leaflets are mildly thickened. There is trace to mild regurgitation. Aorta: Ascending aorta: The ascending aorta measures 4.1 cm (transverse) and is mild to moderately dilated. Prepared and electronically signed by Avelina Martinez MD 10/24/2018 10:51
--- NOTE | 2018-10-24 10:56 | HP ---
CC: Dr. Mckeon * HISTORY AND PHYSICAL: DATE OF ADMISSION: 10/24/18 PRIMARY CARE PROVIDER: Dr. Mckeon. CHIEF COMPLAINT: Chest pain. HISTORY OF PRESENT ILLNESS: Mr. Garcia is a 63-year-old male whom I discharged from [facility] on 10/23/18 after he presented on 10/22/18 with complaints of chest pain. The patient was ruled out for an acute coronary syndrome and underwent an exercise nuclear stress test. The patient's exercise/EKG portion of the stress test was considered intermediate due to the fact that the patient developed chest pain at the peak of exercise. There were no EKG findings of ischemia, however. The nuclear portion of the stress test was negative for ischemia or infarct, and the patient was ultimately discharged home. It was noted by the web site specialist that the patient was not on any antianginals and therefore I asked the patient to reduce his losartan to 25 mg daily and to initiate amlodipine 2.5 mg p.o. daily. The patient had yet to start that as they would have been due on the morning of this admission. Just prior to the patient's discharge, we discussed reasons to return to the hospital. Upon returning home at approximately 7 p.m. on 10/23/18, he developed severe sharp pain in the center of his chest substernally. He describes this as being constant pain. He unfortunately tried to tough it out at home and did not immediately return to the emergency room. As the pain was unrelenting, the patient ultimately returned to the emergency room around 5 a.m. This pain is completely different than the pain he had previously, which occurred with walking up a hill. This pain developed while sitting at rest. He felt slightly warm. He vomited once last evening and he vomited again this morning. The pain went away after the patient received morphine in the emergency room. However, approximately 3 hours after the first dose of morphine, the pain returned. He was given another dose of morphine. He states that the pain at this point is almost completely gone, but there is still low level discomfort in his chest. PAST MEDICAL HISTORY: 1. Sensory neuropathy, treated with IVIG q.6 weeks. 2. Hypertension. 3. Hypothyroidism. 4. Erectile dysfunction. PAST SURGICAL HISTORY: Bilateral hernia repair. MEDICATIONS: 1. Amlodipine 2.5 mg p.o. daily. 2. Tadalafil 20 mg p.o. daily p.r.n. ED. 3. Udenafil 100 mg p.o. daily p.r.n. ED. 4. Omeprazole 20 mg p.o. daily. 5. Losartan 25 mg p.o. daily. 6. Levothyroxine 125 mcg p.o. daily. 7. Hemp oil 2 tablespoons p.o. daily. 8. Vitamin D3 2000 units p.o. daily. ALLERGIES: No known drug allergies. FAMILY HISTORY: The patient's father had an VA at the age of 50. He at the age of 66 of an VA. The patient's mother is alive and well. The patient has 2 younger siblings, who are both alive and well. SOCIAL HISTORY: The patient is a lifelong nonsmoker. 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 He is . He lives with his , who is his surrogate decision maker. REVIEW OF SYSTEMS: A complete 11-system review of systems is obtained. Pertinent positives and negatives are as per HPI and otherwise negative. PHYSICAL EXAMINATION GENERAL: The patient is a well-developed, middle-aged male, seen sitting up in the stretcher, appearing to be uncomfortable, but in no acute distress. VITAL SIGNS: Blood pressure 120/80, pulse 84, respirations 12, temp 97.4, O2 sat 98% on room air. HEENT: Pupils are equal and round. Extraocular muscles are intact. Oropharynx is clear. Oral mucosa is moist. There is no submandibular, cervical or supraclavicular adenopathy. Thyroid is not enlarged. No thyroid nodules noted. PULMONARY: Lungs are clear to auscultation bilaterally. CARDIAC: Normal S1, S2. Regular rate and rhythm. I do not appreciate any murmurs. ABDOMEN: Bowel sounds are present. Abdomen is soft, nontender, nondistended. MUSCULOSKELETAL: There is no cyanosis or clubbing of the digits. There is full active range of motion of all 4 extremities. SKIN: Warm and dry. There are no rashes. NEUROLOGIC: Cranial nerves II through XII are grossly intact. Sensation is intact to light touch throughout. Strength is 5/5 and symmetric in both upper and lower extremities bilaterally. PSYCH: The patient is alert. He is oriented x3. Affect appears appropriate. DIAGNOSTIC STUDIES/LAB DATA: WBC 9.2, hemoglobin 16.6, hematocrit 49, platelets 198. PTT 29.9. Sodium 138, potassium 4.1, chloride 106, CO2 of 25, BUN 29, creatinine 1.27, glucose 141, calcium 9.2, bilirubin 0.6. AST 23, ALT 18, alk phos 65. Troponin 0.35 up to 0.52, albumin 4.1. EKG reveals possible slight upward deviation of the ST segments in lead aVF. There are T wave inversions in lead III. There is abnormal in the lateral leads. Chest x-ray: No evidence for acute active cardiopulmonary disease. ASSESSMENT AND PLAN: Mr. Garcia is a 63-year-old male, who has a history of hypothyroidism and hypertension as well as sensory neuropathy, treated with IVIG , who presents to the emergency room with complaints of chest pain 1 day after having a negative stress test. 1. Non-ST elevation myocardial infarction. At this point, the patient is being admitted for non-ST elevation myocardial infarction. His initial troponin was 0.35 up to 0.52. He appears grossly uncomfortable, though denies significant chest pain. He does still, however, have low level chest pain. At this point, the patient will be admitted to the intensive care unit. Cardiology consultation has been requested and Dr. Martinez is present seeing the patient now. It is likely the patient will need cardiac catheterization urgently. He will remain on the heparin drip. He is receiving aspirin now, and Lipitor has been added. I have added on the hemoglobin A1c and a lipid panel. Transthoracic echocardiogram has also been ordered. 2. Hypertension. At this point, the patient's blood pressure is soft after the morphine and nitro paste. We will be initiating metoprolol 12.5 mg p.o. twice daily, so we will need to be mindful of his blood pressure. His losartan and amlodipine will be held temporarily. 3. Hypothyroidism. We will continue Synthroid at his home dose. 4. DVT prophylaxis. According to the Adult Thrombosis Prophylaxis Risk Factor Assessment Guide, the patient has a total risk factor score of 3, making him the highest risk. He is on a heparin drip and this currently will act as his DVT prophylaxis. 5. Code status is full. TIME SPENT: Fifty five minutes was spent on the admission of the patient. [id number]/[facility] #: [id number] [facility]
[2018-10-24 13:23] LABS: Troponin I 0.94 ng/mL (<0.04)
[2018-10-24] MEDS ORDERED: Atropine SYRINGE* 0.1 MG/ML 10 ML SYRINGE (1 MG) ONE (13:53)
[2018-10-24 15:28] LABS: Creatine Kinase 257 U/L (10-223)
[2018-10-24 15:34] LABS: CKMB ng/mL 37.2 ng/mL (0.6-6.3); Troponin I 3.86 ng/mL (<0.04)
[2018-10-24] MEDS: Ticagrelor* 90 MG TAB PO SCH (19:53)
[2018-10-24 20:09] LABS: Creatine Kinase 342 U/L (10-223)
[2018-10-24 20:14] LABS: CKMB ng/mL 43.8 ng/mL (0.6-6.3)
[2018-10-24 20:40] LABS: Magnesium 1.7 mg/dL (1.9-2.7)
[2018-10-24] MEDS ORDERED: Magnesium Sulfate 1 GM IV* 1 GM/100 ML BAG IV ONE (21:00)
[2018-10-25 05:14] LABS: ABS Lymphocytes 0.7 10^3/ul (1.0-4.8); ABS Monocytes 0.8 10^3/ul (0-0.8); Eosinophil % 0.5 %; Hematocrit 45 % (42-52); Hemoglobin 15.4 g/dL (14.0-18.0); Lymphocyte % 7.9 %; Mean Corpuscular HGB Conc 35 g/dL (31-36); Mean Corpuscular Hemoglobin 33 pg (27-31); Mean Corpuscular Volume 96 fL (80-94); Mean Platelet Volume 9.3 fL (7.4-10.4); Nucleated Red Blood Cells % 0.1; Platelet Count 155 10^3/uL (150-450); Red Blood Count 4.67 10^6 /uL (4.18-5.48); Red Cell Distribution Width 13 % (10-15); White Blood Count 8.5 10^3/uL (3.5-10.8)
[2018-10-25 05:33] LABS: Anion Gap 2 mmol/L (2-11); Blood Urea Nitrogen 18 mg/dL (6-24); CO2 Carbon Dioxide 29 mmol/L (22-32); Calcium 8.7 mg/dL (8.6-10.3); Chloride 107 mmol/L (101-111); Cholesterol 127 mg/dL; Creatine Kinase 315 U/L (10-223); EGFR African American 73.5 (>60); EGFR Non-African American 60.8 (>60); Glucose 99 mg/dL (70-100); LDL Cholesterol 79 mg/dL; Potassium 4.1 mmol/L (3.5-5.0); Sodium 138 mmol/L (135-145); Triglycerides 94 mg/dL
[2018-10-25 05:36] LABS: Troponin I 4.53 ng/mL (<0.04)
[2018-10-25 05:38] LABS: CKMB ng/mL 31.4 ng/mL (0.6-6.3)
[2018-10-25] MEDS: Ticagrelor* 90 MG TAB PO SCH ×2 (08:43→20:18)
[2018-10-25] MEDS: Aspirin 81 mg CHEW TAB* 81 MG TAB.CHEW PO SCH (08:43)
[2018-10-25] MEDS ORDERED: Gabapentin CAP(*) 300 MG PO PRN (08:44)
--- NOTE | 2018-10-25 08:51 | PN ---
Subjective Date of Service: 10/25/18 Interval History: Pt is feeling well this AM. He denies any chest pain or SOB. He has not been out of bed yet. No groin pain. Objective Active Medications: Aspirin (Aspirin 81 Mg Chew Tab*) 81 mg PO DAILY [facility] Last Admin: 10/25/18 08:43 Dose: 81 mg Atorvastatin Calcium (Lipitor*) 80 mg PO 1700 [facility] Gabapentin (Neurontin Cap(*)) 600 mg PO BEDTIME PRN PRN Reason: nerve pain Levothyroxine Sodium (Synthroid Tab*) 125 mcg PO 0600 [facility] Metoprolol Succinate (Toprol Xl Tab*) 25 mg PO DAILY [facility] Nitroglycerin (Nitroglycerin Tab 0.4 Mg*) 0.4 mg SL Q5M PRN PRN Reason: ANGINA Pantoprazole Sodium (Protonix Tab*) 40 mg PO DAILY [facility] Ticagrelor (Brilinta*) 90 mg PO BID [facility] Last Admin: 10/25/18 08:43 Dose: 90 mg Vital Signs - 8 hr 10/25/18 10/25/18 10/25/18 01:00 01:01 01:30 Temperature Pulse Rate 100 90 63 Respiratory 17 13 12 Rate Blood Pressure 96/79 124/79 (mmHg) O2 Sat by Pulse 97 97 97 Oximetry 10/25/18 10/25/18 10/25/18 01:47 02:00 02:01 Temperature Pulse Rate 76 68 Respiratory 10 15 14 Rate Blood Pressure 94/41 (mmHg) O2 Sat by Pulse 97 96 Oximetry 10/25/18 10/25/18 10/25/18 02:05 03:00 03:30 Temperature Pulse Rate 66 57 62 Respiratory 15 15 11 Rate Blood Pressure 107/69 103/68 110/62 (mmHg) O2 Sat by Pulse 97 95 96 Oximetry 10/25/18 10/25/18 10/25/18 04:00 04:30 04:52 Temperature 99.2 F Pulse Rate 62 62 Respiratory 15 7 21 Rate Blood Pressure 127/84 110/75 (mmHg) O2 Sat by Pulse 96 95 Oximetry 10/25/18 10/25/18 10/25/18 05:00 05:30 06:00 Temperature Pulse Rate 59 62 71 Respiratory 8 8 10 Rate Blood Pressure 129/83 119/76 112/70 (mmHg) O2 Sat by Pulse 97 96 97 Oximetry 10/25/18 10/25/18 10/25/18 07:00 07:01 07:03 Temperature Pulse Rate 64 62 Respiratory 15 14 10 Rate Blood Pressure 107/69 (mmHg) O2 Sat by Pulse 100 97 Oximetry 10/25/18 07:48 Temperature 97.1 F Pulse Rate Respiratory Rate Blood Pressure (mmHg) O2 Sat by Pulse Oximetry Oxygen Devices in Use Now: None Appearance: MIddle aged male sitting up in bed, NAD Eyes: No Scleral Icterus Ears/Nose/Mouth/Throat: Mucous Membranes Moist Respiratory: Symmetrical Chest Expansion and Respiratory Effort, Clear to Auscultation Cardiovascular: NL Sounds; No Murmurs; No JVD, RRR, No Edema Abdominal: NL Sounds; No Tenderness; No Distention Extremities: No Clubbing, Cyanosis Skin: No Nodules or Sclerosis Neurological: Alert and Oriented x 3 Result Diagrams: 10/25/18 04:58 10/25/18 04:58 Microbiology and Other Data: Microbiology 10/24/18 11:15 Nasal Screen MRSA (PCR) - Final Nasal Mrsa Not Detected Assess/Plan/Problems-Billing Mr Garcia is a 63 yo M who has a h/o HTN, hypothyroidism and ED who presented to the ER 1 day after a normal stress test with chest pain that was different than prior and was admitted for a NSTEMI. - Patient Problems (1) NSTEMI (non-ST elevated myocardial infarction) Current Visit: Yes Status: Acute Code(s): I21.4 - NON-ST ELEVATION (NSTEMI) MYOCARDIAL INFARCTION SNOMED Code(s): 62418436 Comment: Pt with spiral dissection of a large OM2 branch. He is s/p ROBLES placement. On ASA and brilinta. Continue lipitor and metoprolol (changed to long acting this AM by Dr. Zamudio). Pt had 4 beat run of VT last night. Up an moving after breakfast, transfer to tele later this AM if doing ok. Likely home tomorrow. (2) HTN (hypertension) Current Visit: Yes Status: Acute Code(s): I10 - ESSENTIAL (PRIMARY) HYPERTENSION SNOMED Code(s): 39647002 Comment: BP low normal on metoprolol- continue to monitor. (3) Hypothyroid Current Visit: Yes Status: Acute Code(s): E03.9 - HYPOTHYROIDISM, UNSPECIFIED SNOMED Code(s): 10073740 Comment: Continue synthroid. (4) Sensory polyneuropathy Current Visit: Yes Status: Acute Code(s): G60.8 - OTHER HEREDITARY AND IDIOPATHIC NEUROPATHIES SNOMED Code(s): 08259215 Comment: IVIG per Dr. Ibanez as outpt. Continue gabapentin. (5) DVT prophylaxis Current Visit: Yes Status: Acute Code(s): Z29.9 - ENCOUNTER FOR PROPHYLACTIC MEASURES, UNSPECIFIED SNOMED Code(s): 208450220 Comment: start SQ heparin tonight (6) Full code status Current Visit: Yes Status: Acute Code(s): Z78.9 - OTHER SPECIFIED HEALTH STATUS SNOMED Code(s): 357607211
--- NOTE | 2018-10-25 09:28 | CATH ---
CC: Dr. Avelina Martinez; Dr. Alannah Mckeon* CARDIAC CATHETERIZATION: DATE OF PROCEDURE: 10/24/18 INDICATION FOR THE PROCEDURE: The patient now with non-ST segment elevation myocardial infarction with continued chest discomfort. PROCEDURES: Coronary arteriography, left heart catheterization, balloon angioplasty and placement of a 3.5 x 28 long Synergy drug-eluting stent in the second obtuse marginal branch. CONSENT: The patient was interviewed and examined in the emergency room where the risks and benefits were explained. He understood them and wished to proceed. PRECARDIAC CATHETERIZATION LABORATORY RESULTS: Hemoglobin and hematocrit of 16.6 and 49 with a platelet count of 198,000. BUN 29, creatinine 1.27. Sodium 138, potassium 4.1, chloride 106, bicarb 25. Troponin was 0.52. APPROACH UTILIZED: Of note, the patient was noted to have tortuosity on chest x - ray of his aorta, with dilatation of the ascending aorta noted on echocardiogram, as such, the femoral approach was chosen. EQUIPMENT UTILIZED: 1. Right femoral artery sheath was a 6.5-Lebanese Merit Prelude sheath. 2. The diagnostic guidewire was a 175 length J-tipped guidewire. 3. The diagnostic catheters included a 5-Lebanese FR4 curve catheter and the guide catheter was utilized to the left coronary artery. 4. Guide catheter utilized was a 6-Lebanese VL 4.5 curve guide catheter. 5. Interventional wire was a BMW 190 cm length guidewire. 6. Pre-stent delivery balloon and angioplasty catheter was a 3.0 x 20 mm long NC Emerge balloon. 7. The stent utilized was a 3.5 x 28 mm long Synergy drug-eluting stent. 8. Post-stent deployment balloon, the dilatation catheter was a 3.5 x 12 mm long NC Emerge balloon. MEDICATIONS GIVEN: The patient had already received aspirin, Brilinta and heparin in the emergency room. ACT was checked and found to be subtherapeutic. Angiomax bolus and Angiomax drip was started. The patient did receive Versed as well. DESCRIPTION OF PROCEDURE: The patient was brought to the cardiovascular laboratory, where a formal time-out was performed. He was prepped and draped in a sterile fashion. The right groin was anesthetized with 1% lidocaine, the right femoral artery was cannulated and the sheath was placed. Coronary arteriography was performed following the decision to intervene into the second obtuse marginal branch was made. ACT was checked and found to be subtherapeutic. Angiomax bolus and Angiomax drip was started. A.014 BMW wire was advanced down the circumflex artery into the second obtuse marginal branch. Attempts initially to advance the stent as a primary approach was tried, but resistance was met. As such, predilatation was made followed by stent delivery and post-stent deployment balloon inflations to high pressure. Following this, the artery was accessed with the wire in place and the wire removed. Central aortic pressure was then recorded using an angle pigtail catheter advanced to the ascending aorta. The catheter was then passed across the aortic valve into the left ventricular where the left ventricular pressure was recorded. Pull back was obtained. No left ventriculogram was performed as an echocardiogram had already been performed. At the end of the case, the sheath was sutured in place for the sheath to be removed in the intensive care unit. The patient was stable at the time of transfer. RESULTS: HEMODYNAMIC DATA: Left heart catheterization - central aortic pressure recorded at 132/83 with a mean of 105, left ventricular pressure was 141 over left ventricle and diastolic pressure of 24. CORONARY ARTERIOGRAPHY: A. Left coronary artery: 1. Left main - mild luminal irregularities, but no significant lesions were seen. 2. Left anterior descending artery. The left anterior descending artery supplied first and second diagonal branch, both of which bifurcated followed by a thin third diagonal branch. The left anterior descending artery extended to the apical region and slightly onto the distal inferior wall. The first diagonal branch had an ostial narrowing of 45% to 50%. The second diagonal branch had an ostial narrowing of 65% to 70%. The LAD itself had a 20% proximal narrowing and a 30% mid narrowing noted. 3. Circumflex artery - a dominant vessel supplying 4 obtuse marginal branches, a low-lying posterior left ventricular branch and ending in a left- sided posterior descending artery. There was a mild 25% narrowing seen in the proximal portion of this vessel. The first obtuse marginal branch was a thin vessel, somewhat short in nature. The second obtuse marginal branch was a moderate sized vessel which had a dissected 95% stenosed area in its proximal to mid portion. The continuation of the circumflex had 25% to 30% narrowing as it continued on to the inferior surface of the heart. The proximal portion of the left-sided PDA had a marked caliber change with the vessel appearing to be some 50% narrower in the PDA itself. The rest of the PDA matched that exact degree of narrowing. Possible ectasia throughout the distal vessel as well as other areas throughout the left coronary arteries may account for some of the luminal irregularities present. B. Right coronary artery - a nondominant vessel supplying 2 right ventricular branches. There was a 70% to 75% obstruction seen in its proximal portion before the 2 acute marginal branches. INTERVENTION INTO SECOND OBTUSE MARGINAL BRANCH: Successful reduction of critical dissected 90% to 95% proximal to mid lesion with balloon angioplasty and placement of a 3.5 x 28 mm long Synergy drug- eluting stent dilated at 3.6 mm with JUNG 3 flow. No dissection seen and less than 10% residual stenosis. OVERALL ASSESSMENT: Successful intervention into critically dissected and stenosed second obtuse marginal branch, which clearly represented the culprit vessel with its non-ST- elevation myocardial infarction. He has moderate disease elsewhere with a more a significant lesion in a nondominant right coronary artery that we will not deal with at this point. Aggressive risk factor management and dual antiplatelet therapy will be pursued under guidance of Dr. Avelina Martinez, the patient's primary scaler packer and eventually Dr. Alannah Mckeon, his primary care physician. Smoking cessation is critical in this patient's ongoing cardiac care. [id number]/[facility] #: [id number] MTDD
[2018-10-25] MEDS: Metoprolol Succinate XL TAB* 25 MG PO SCH (09:46)
[2018-10-25] MEDS: Levothyroxine TAB* 125 MCG TAB PO SCH (09:46)
[2018-10-25] MEDS: Pantoprazole TAB * 40 MG TAB PO SCH (09:47)
[2018-10-25] MEDS ORDERED: Atorvastatin* 80 MG TAB PO SCH (17:00)
[2018-10-26] MEDS: Levothyroxine TAB* 125 MCG TAB PO SCH (06:12)
[2018-10-26] MEDS: Metoprolol Succinate XL TAB* 25 MG PO SCH (08:14)
[2018-10-26] MEDS: Pantoprazole TAB * 40 MG TAB PO SCH (08:14)
[2018-10-26] MEDS: Ticagrelor* 90 MG TAB PO SCH (08:14)
[2018-10-26] MEDS: Aspirin 81 mg CHEW TAB* 81 MG TAB.CHEW PO SCH (08:14)
[2018-10-26 12:17] VITALS: BP 89/65
--- NOTE | 2018-10-26 20:50 | DS ---
CC: Dr. Mckeon; Dr. Martinez* DISCHARGE SUMMARY: DATE OF ADMISSION: 10/24/18 DATE OF DISCHARGE: 10/26/18 PRIMARY CARE PROVIDER: Dr. Mckeon. PRINCIPAL DIAGNOSIS: Non-ST elevation myocardial infarction secondary to coronary artery dissection of a large OM2 branch. SECONDARY DIAGNOSES: 1. Hypertension. 2. Hypothyroidism. 3. Sensory neuropathy. DISCHARGE MEDICATIONS: 1. Gabapentin 600 mg p.o. q.h.s. p.r.n. nerve pain. 2. Cialis 20 mg p.o. daily p.r.n. ED. 3. Sildenafil 100 mg p.o. daily p.r.n. ED. 4. Levothyroxine 125 mcg p.o. daily. 5. Immunoglobulin [address] Ibanez. 6. Hemp oil 2 tablespoons p.o. daily. 7. Vitamin D3 2000 units p.o. daily. 8. Brilinta 90 mg p.o. b.i.d. 9. Protonix 40 mg p.o. daily. 10. Nitroglycerin 0.4 mg SL q.5 minutes p.r.n. chest pain. 11. Metoprolol XL 25 mg p.o. daily. 12. Lipitor 80 mg p.o. at bedtime. 13. Aspirin 81 mg p.o. daily. HOSPITAL COURSE: Mr. Garcia is a 63-year-old male, whom I discharged from the hospital on 10/23/18 after having a negative stress test and workup of chest pain, who presents back to the emergency room on the morning of 10/24/18 with complaints of severe chest pain that is different than the pain he presented previously for. The patient had an elevated troponin of 0.35. At the time of my evaluation, the patient had ongoing chest pain, though it was at a lower level. The patient was taken urgently to the cardiac catheterization lab by Dr. Zamudio. The catheterization revealed the left main to have mild luminal irregularities, but no significant lesions identified. The left anterior descending supplied first and second diagonal branch, both of which bifurcated followed by thin third diagonal branch. The LAD extended to the apical region and slightly on to the distal inferior wall. The first diagonal branch had an ostial narrowing of 45% to 50%. The second diagonal branch had an ostial narrowing of 65% to 70%. The LAD itself had a 20% narrowing and a 30% mid narrowing noted. The circumflex artery is a dominant vessel supplying 4 obtuse marginal branches. A low lying posterior left ventricular branch and ending in a left-sided posterior descending artery. There was a mild 25% narrowing seen in the proximal portion of the vessel. The first obtuse marginal branch was a thin vessel, somewhat short in nature. The second obtuse marginal branch was a moderate size vessel, which had a dissected 95% stenosed area in its proximal to mid portion. The continuation on the circumflex had a 25% to 30% narrowing as it continued on to the inferior surface of the heart. The right coronary artery was a nondominant vessel supplying 2 right ventricular branches. There was a 70% to 75% obstruction seen in its proximal portion before the 2 acute marginal branches. The patient underwent balloon angioplasty and placement of a drug-eluting stent to the critical dissected 90% to 95% proximal to mid lesion. The patient also has moderate disease elsewhere with a more significant lesion in a nondominant right coronary artery that was not dealt with at this time. The patient felt well after the cardiac catheterization. He did have a 4-beat run of ventricular tachycardia on the evening of admission. He was asymptomatic with this. The patient has since been up and ambulating, doing well without any chest pain or shortness of breath. The patient has been instructed to continuing the aspirin and Plavix without interruption. He also knows that he needs to take Lipitor. He was started on metoprolol XL and has tolerated this. I have discontinued his other blood pressure medications as his blood pressure has been under good control on the metoprolol XL alone. The patient will need to follow up with Dr. Juarez on at [address] Martinez on 11/08/18 at 12:50 p.m. PHYSICAL EXAMINATION: On the day of discharge, the patient is awake, alert, and oriented, sitting up in bed, in no acute distress. Cardiac exam revealed a normal S1, S2 with a regular rate and rhythm. His lungs were clear. His abdomen was soft, nontender, nondistended. FOLLOWUP CONCERNS: The patient is being discharged home today, 10/26/18. Activity is as per post cath instructions. Condition on discharge is stable. Diet is heart healthy. The patient is to follow up with Dr. Mckeon in the next 4 to [address] Juarez on 10/31/[address] Martinez on 11/08/18. TIME SPENT: Thirty-five minutes was spent discharging this patient. [id number]/[facility] #: [id number] MTDD
== END 2018-10-26 12:26 | disposition home or self-care (01) | DRG 246 ==
LOC: ED 04:59 → ICU 09:18 → MEDTELE 10-25 08:53
PROVIDERS: ADMIT Hospitalist; ATTEND Hospitalist
PROC: B2111ZZ Fluoroscopy of Multiple Coronary Arteries using Low Osmolar Contrast (ICD-10-PCS; 2018-10-24)
PROC: 4A023N7 Measurement of Cardiac Sampling and Pressure, Left Heart, Percutaneous Approach (ICD-10-PCS; 2018-10-24)
PROC: 027034Z Dilation of Coronary Artery, One Artery with Drug-eluting Intraluminal Device, Percutaneous Approach (ICD-10-PCS; principal; 2018-10-24 09:30)
DX: I21.4 Non-ST elevation (NSTEMI) myocardial infarction (principal); I25.42 Coronary artery dissection; G61.81 Chronic inflammatory demyelinating polyneuritis; E03.9 Hypothyroidism, unspecified; G62.9 Polyneuropathy, unspecified; N52.9 Male erectile dysfunction, unspecified; K21.9 Gastro-esophageal reflux disease without esophagitis; N18.9 Chronic kidney disease, unspecified; R73.9 Hyperglycemia, unspecified; I25.118 Atherosclerotic heart disease of native coronary artery with other forms of angina pectoris; Z79.02 Long term (current) use of antithrombotics/antiplatelets; Z79.82 Long term (current) use of aspirin; Z82.49 Family history of ischemic heart disease and other diseases of the circulatory system; Z83.3 Family history of diabetes mellitus; Z72.89 Other problems related to lifestyle; Z81.2 Family history of tobacco abuse and dependence
CPT/HCPCS: 36415; 71045; 71046; 78452; 80048; 80053; 80061; 82550; 82553; 83036; 83735; 84443; 84484; 85025; 85347; 85610; 85730; 87641; 93005; 93017; 93308; 93458; 99284; 99285; A9270-GY; A9502; C1725; C1769; C1876; C1887; C9600-LC; G0378; J0461; J0583; J1644; J2250; J2270; J2405; J3010; J3475

== ENCOUNTER 2018-10-26 20:18 | Emergency (ER) | payer MEDICARE, BC ==
[2018-10-26 20:37] LABS: ABS Eosinophils 0.1 10^3/ul (0-0.6); ABS Lymphocytes 0.8 10^3/ul (1.0-4.8); ABS Monocytes 0.7 10^3/ul (0-0.8); ABS Neutrophils 5.1 10^3/ul (1.5-7.7); Eosinophil % 1.1 %; Hematocrit 44 % (42-52); Hemoglobin 15.5 g/dL (14.0-18.0); Lymphocyte % 12.5 %; Mean Corpuscular HGB Conc 35 g/dL (31-36); Mean Corpuscular Hemoglobin 33 pg (27-31); Mean Corpuscular Volume 95 fL (80-94); Mean Platelet Volume 9.1 fL (7.4-10.4); Platelet Count 168 10^3/uL (150-450); Red Blood Count 4.65 10^6 /uL (4.18-5.48); Red Cell Distribution Width 13 % (10-15); White Blood Count 6.8 10^3/uL (3.5-10.8)
[2018-10-26 20:55] LABS: ALT 16 U/L (7-52); AST 27 U/L (13-39); Albumin 3.8 g/dL (3.2-5.2); Albumin/Globulin Ratio 1.2 (1-3); Alkaline Phosphatase 61 U/L (34-104); Anion Gap 5 mmol/L (2-11); BUN/Creatinine Ratio 21.4 (8-20); Blood Urea Nitrogen 30 mg/dL (6-24); C Reactive Protein 44.76 mg/L (<8.01); CO2 Carbon Dioxide 27 mmol/L (22-32); Calcium 9.3 mg/dL (8.6-10.3); Chloride 105 mmol/L (101-111); EGFR African American 61.5 (>60); EGFR Non-African American 50.9 (>60); Globulin 3.1 g/dL (2-4); Glucose 110 mg/dL (70-100); Potassium 4.3 mmol/L (3.5-5.0); Sodium 137 mmol/L (135-145); Total Protein 6.9 g/dL (6.4-8.9)
--- NOTE | 2018-10-26 21:40 | ED ---
Abdominal Pain/Male - HPI Summary HPI Summary: This pt is a 63 Y/O M presenting to [facility] with a CC of diffuse abdominal pain. He stated that he was sitting in his sun room at home at 194 when he felt an intense abdominal pain that was rated a 10/10 in severity. He stated that he became very nauseas and vomited a couple times. He also stated that he became diaphoretic, dizzy, had CP and SOB. He denies any fevers, chills, and headaches. He currently states that the pain has resolved. He stated no aggravating or alleviating factors. He stated that he was recently discharged from the hospital today following a stent that was conducted on 10/23/18. - History of Current Complaint Chief Complaint: Porfirio Stated Complaint: ABD PAIN PER EMS Time Seen by Provider: 10/26/18 21:19 Hx Obtained From: Patient Onset/Duration: Sudden Onset - 1944, Resolved Timing: Intermittent, Lasting Minutes Severity Initially: Severe Severity Currently: Mild Pain Intensity: 2 Pain Scale Used: 0-10 Numeric Location: Diffuse Radiates: No Aggravating Factor(s): Nothing Alleviating Factor(s): Nothing Associated Signs And Symptoms: Positive: Negative - headache, Diaphoresis, Chest Pain, Dizzy, Nausea, Vomiting, Other - POSITIVE: SOB. Negative: Fever - Allergies/Home Medications Allergies/Adverse Reactions: Allergies Allergy/AdvReac Type Severity Reaction Status Date / Time No Known Allergies Allergy Verified 10/26/18 20:22 PMH/Surg Hx/FS Hx/Imm Hx Previously Healthy: Yes Endocrine/Hematology History: Reports: Hx Thyroid Disease Denies: Hx Diabetes Cardiovascular History: Reports: Hx Hypertension Denies: Hx Coronary Artery Disease, Hx Hypercholesterolemia, Hx Myocardial Infarction, Hx Pacemaker/ICD, Hx Valvular Heart Disease Respiratory History: Reports: Hx Sleep Apnea - lost weight, no longer uses cpap Denies: Hx Asthma, Hx Chronic Obstructive Pulmonary Disease (COPD) GI History: Reports: Hx Gastroesophageal Reflux Disease History: Reports: Hx Renal Disease - MULTI RENAL CYSTS ON LEFT KIDNEY, Other Problems/Disorders - only one functioning kidney (L)? Denies: Hx Chronic Renal Failure, Hx Dialysis Musculoskeletal History: Denies: Hx Arthritis, Hx Osteoporosis Sensory History: Reports: Hx Contacts or Glasses - reading Denies: Hx Deafness, Hx Hearing Aid Opthamlomology History: Reports: Hx Contacts or Glasses - reading Neurological History: Reports: Other Neuro Impairments/Disorders - peripheral neuropathy Denies: Hx Dementia - Surgical History Surgery Procedure, Year, and Place: TONSILLECTOMY. HERNIA REPAIR. FOOT SURGERY , [place] neuroma Hx Anesthesia Reactions: No - Immunization History Date of Tetanus Vaccine: UTD Date of Influenza Vaccine: NO Infectious Disease History: No Infectious Disease History: Denies: Traveled Outside the [place] in Last 30 Days - Family History Known Family History: Positive: Cardiac Disease, Diabetes - Social History Alcohol Use: Rare Alcohol Amount: 4 beers a week Substance Use Type: Reports: None Smoking Status (MU): Never Smoked Tobacco Have You Smoked in the Last Year: No Review of Systems Positive: Skin Diaphoresis. Negative: Fever, Chills Positive: Chest Pain Positive: Shortness Of Breath Positive: Abdominal Pain - diffuse, Vomiting, Nausea Negative: Headache All Other Systems Reviewed And Are Negative: Yes Physical Exam - Summary Physical Exam Summary: Appearance: Well appearing, no pain distress Skin: warm, dry, reflects adequate perfusion Head/face: normal Eyes: EOMI, KLAUS ENT: normal Neck: supple, non-tender Respiratory: CTA, breath sounds present Cardiovascular: RRR, pulses symmetrical Abdomen: non-tender, soft Musculoskeletal: normal, strength/ROM intact Neuro: normal, sensory motor intact, A&Ox3 Triage Information Reviewed: Yes Vital Signs On Initial Exam: Initial Vitals Temp Pulse Resp BP Pulse Ox 97.5 F 71 20 110/79 95 10/26/18 20:19 10/26/18 20:19 10/26/18 20:19 10/26/18 20:19 10/26/18 20:19 Vital Signs Reviewed: Yes Diagnostics - Vital Signs Vital Signs Temp Pulse Resp BP Pulse Ox 10/26/18 21:18 73 25 114/74 98 10/26/18 21:00 71 24 96 10/26/18 20:48 67 20 104/80 93 10/26/18 20:24 73 19 98 10/26/18 20:19 97.5 F 69 22 110/79 100 - Laboratory Lab Results: Lab Results 10/26/18 10/26/18 10/26/18 Range/Units 20:28 20:28 20:28 WBC 6.8 (3.5-10.8) 10^3/uL RBC 4.65 (4.18-5.48) 10^6 /uL Hgb 15.5 (14.0-18.0) g/dL Hct 44 (42-52) % MCV 95 H (80-94) fL MCH 33 H (27-31) pg MCHC 35 (31-36) g/dL RDW 13 (10-15) % Plt Count 168 (150-450) 10^3/uL MPV 9.1 (7.4-10.4) fL Neut % (Auto) 75.8 % Lymph % (Auto) 12.5 % [place] % (Auto) 10.3 % Eos % (Auto) 1.1 % Baso % (Auto) 0.3 % Absolute Neuts (auto) 5.1 (1.5-7.7) 10^3/ul Absolute Lymphs (auto) 0.8 L (1.0-4.8) 10^3/ul Absolute Monos (auto) 0.7 (0-0.8) 10^3/ul Absolute Eos (auto) 0.1 (0-0.6) 10^3/ul Absolute Basos (auto) 0.0 (0-0.2) 10^3/ul Absolute Nucleated RBC 0.0 10^3/ul Nucleated RBC % 0.0 Sodium 137 (135-145) mmol/L Potassium 4.3 (3.5-5.0) mmol/L Chloride 105 (101-111) mmol/L Carbon Dioxide 27 (22-32) mmol/L Anion Gap 5 (2-11) mmol/L BUN 30 H (6-24) mg/dL Creatinine 1.40 H (0.67-1.17) mg/dL Est GFR ( Amer) 61.5 (>60) Est GFR (Non-Af Amer) 50.9 (>60) BUN/Creatinine Ratio 21.4 H (8-20) Glucose 110 H (70-100) mg/dL Lactic Acid 1.6 (0.5-2.0) mmol/L Calcium 9.3 (8.6-10.3) mg/dL Total Bilirubin 0.70 (0.2-1.0) mg/dL AST 27 (13-39) U/L ALT 16 (7-52) U/L Alkaline Phosphatase 61 (34-104) U/L C-Reactive Protein 44.76 H (<8.01) mg/L Total Protein 6.9 (6.4-8.9) g/dL Albumin 3.8 (3.2-5.2) g/dL Globulin 3.1 (2-4) g/dL Albumin/Globulin Ratio 1.2 (1-3) Lipase 43 (11.0-82.0) U/L Result Diagrams: 10/26/18 20:28 10/26/18 20:28 Lab Statement: Any lab studies that have been ordered have been reviewed, and results considered in the medical decision making process. - Radiology CXR Radiology Interpretation Completed By: ED Physician Summary of Radiographic Findings: No acute processes. Pending offical review. - CT CT A/P CT Interpretation Completed By: Radiologist Summary of CT Findings: 1. No CT findings to correlate with patient's symptomatology. Specifically no. diverticulitis. 2. Findings which in the proper clinical setting can represent a right lower. extremity DVT. Consider followup right lower extremity venous Doppler. ultrasound. 3. Multicystic left kidney unchanged from prior. Abdominal Pain Male Course/Dx - Course Course Of Treatment: This pt is a 63 Y/O M presenting to [facility] with a CC of abdominal pain. He stated that he was sitting in his sun room at home at 1945 when he felt an intense abdominal pain that was rated a 10/10 in severity. His PE found no abnormal findings. His CXR shows no acute processes. His labs results were reviewed. Dr. Martinez, board stacker, was consulted at 2345 and stated that the pt is medically cleared in a cardiac sense. If his CT A/P returns negative then he can be discharged home. His CT A/P found the following : 1. No CT findings to correlate with patient's symptomatology. Specifically no. diverticulitis. 2. Findings which in the proper clinical setting can represent a right lower. extremity DVT. Consider followup right lower extremity venous Doppler. ultrasound. 3. Multicystic left kidney unchanged from prior. The pt was informed of these findings and stated that he wanted a DVT study conducted in the morning when they are offered. He will be a sign out to Dr. Robbins at shift change 0700 10/27/18 pending disposition and DVT study. He will be diagnosed as of now with a Hx of CAD and abdominal pain. - Diagnoses Differential Diagnosis/HQI/PQRI: Diverticulitis, Urinary Tract Infection Provider Diagnoses: Hx of coronary artery disease, Abdominal pain - Provider Notifications Discussed Care Of Patient With: Avelina Martinez Time Discussed With Above Provider: 23:46 Instructed by Provider To: Other - Dr. Martinez, board stacker, stated that the pt is medically cleared in a cardiac sense. If his CT A/P returns negative then he can be discharged home. Discharge - Sign-Out/Discharge Documenting (check all that apply): Sign-Out Patient Signing out patient TO: Rolf Smiths Patient Received Moderate/Deep Sedation with Procedure: No - Discharge Plan Condition: Stable Referrals: Alannah Mckeon MD [Primary Care Provider] - - Billing Disposition and Condition Condition: STABLE - Attestation Statements Document Initiated by Mildred: Yes Documenting Scribe: Noah Booth Provider For Whom Mildred is Documenting (Include Credential): Marvin Cerda MD Scribe Attestation: Noah Bailey, scribed for Marvin Cerda MD on 10/27/18 at 0422. Scribe Documentation Reviewed: Yes Provider Attestation: The documentation as recorded by the Noah mathis accurately reflects the service I personally performed and the decisions made by , Marvin Cerda MD Status of Scribe Document: Viewed
[2018-10-26 21:43] LABS: Urine Appearance Cloudy; Urine Bilirubin Negative (Negative); Urine Blood Negative (Negative); Urine Color Yellow; Urine Glucose Negative (Negative); Urine Ketones Negative (Negative); Urine Nitrite Negative (Negative); Urine Protein Negative (Negative); Urine Specific Gravity 1.026 (1.010-1.030); Urine Urobilinogen Negative (Negative)
[2018-10-26] MEDS ORDERED: NS 0.9% 1000 ML** 1,000 ML IV SCH (21:45)
[2018-10-26 22:04] LABS: Magnesium 1.9 mg/dL (1.9-2.7)
[2018-10-26] MEDS ORDERED: Iodixanol* (CONTRAST) 320 MG/ML 100 ML SDV IV ONE (22:17)
[2018-10-26 22:24] LABS: Troponin I 1.87 ng/mL (<0.04)
[2018-10-27] MEDS ORDERED: Ticagrelor* 90 MG TAB PO ONE (00:42)
--- NOTE | 2018-10-27 08:38 | ED ---
Progress - Progress Note Progress Note: Patient is received as a sign out from Dr. Cerda to Dr. Robbins at 0700 10/27/18 shift change pending RLE US results. RIGHT VENOUS DOPPLER STUDY IMPRESSION: CHRONIC APPEARING NONOCCLUSIVE THROMBUS, WITH VENOUS STASIS AT THE SAPHENOFEMORAL JUNCTION. THIS REPORT WAS REVIEWED BY DR. ROBBINS. Course/Dx - Course Course Of Treatment: This patient was received as a sign out from Dr. Cerda at 0700 10/27/18 shift change pending the ultrasound results. Ultrasound results impression: Chronic appearing nonocclusive thrombus within venous stasis at the saphenofemoral junction. Therefore the patient discharged home with follow-up PCP. Patient is hemodynamically stable alert and oriented 3. - Diagnoses Provider Diagnoses: Hx of coronary artery disease, Abdominal pain Discharge ED - Sign-Out/Discharge Documenting (check all that apply): Patient Departure - DISCHARGE, Receiving Sign-Out Receiving patient FROM: Marvin Cerda Patient Received Moderate/Deep Sedation with Procedure: No - Discharge Plan Condition: Stable Disposition: HOME Patient Education Materials: Abdominal Pain (ED) Referrals: Alannah Mcekon MD [Primary Care Provider] - 3 Days Additional Instructions: RETURN TO ED FOR ANY NEW OR WORSENING SYMPTOMS. FOLLOW UP WITH YOUR PRIMARY CARE PHYSICIAN WITHIN THREE DAYS. - Billing Disposition and Condition Condition: STABLE Disposition: Home - Attestation Statements Document Initiated by Mildred: Yes Documenting Scribe: MORRIS BURKETT Provider For Whom Mildred is Documenting (Include Credential): HEMANT ROBBINS MD Scribe Attestation: MORRIS Bailey, scribed for HEMANT ROBBINS MD on 11/04/18 at 1851. Scribe Documentation Reviewed: Yes Provider Attestation: The documentation as recorded by the MORRIS mathis accurately reflects the service I personally performed and the decisions made by me, HEMANT ROBBINS MD Status of Scribe Document: Viewed
[2018-10-27 09:55] VITALS: BP 117/90
== END 2018-10-27 09:54 | disposition home or self-care (01) ==
LOC: ED 20:18
DX: R10.9 Unspecified abdominal pain (principal); I25.10 Atherosclerotic heart disease of native coronary artery without angina pectoris; E03.9 Hypothyroidism, unspecified; I10 Essential (primary) hypertension; I25.2 Old myocardial infarction; K21.9 Gastro-esophageal reflux disease without esophagitis; N28.9 Disorder of kidney and ureter, unspecified; R06.02 Shortness of breath
CPT/HCPCS: 36415; 71045; 74177; 80053; 81003; 83605; 83690; 83735; 84484; 85025; 86140; 93005; 96360; 96361; 99285; A9270-GY; Q9967

== ENCOUNTER 2020-11-28 10:54 | Inpatient (IN) ==
[2020-11-28 11:41] LABS: ABS Eosinophils 0.1 10^3/ul (0-0.6); ABS Lymphocytes 0.8 10^3/ul (1.0-4.8); ABS Monocytes 0.5 10^3/ul (0-0.8); ABS Neutrophils 3.8 10^3/ul (1.5-7.7); Hematocrit 45 % (42-52); Hemoglobin 15.6 g/dL (14.0-18.0); Lymphocyte % 14.6 %; Mean Corpuscular HGB Conc 35 g/dL (31-36); Mean Corpuscular Hemoglobin 33 pg (27-31); Mean Corpuscular Volume 95 fL (80-94); Mean Platelet Volume 9.7 fL (7.4-10.4); Platelet Count 146 10^3/uL (150-450); Red Blood Count 4.75 10^6 /uL (4.18-5.48); Red Cell Distribution Width 13 % (10-15); White Blood Count 5.1 10^3/uL (3.5-10.8)
[2020-11-28 11:58] LABS: Albumin 3.9 g/dL (3.2-5.2); Albumin/Globulin Ratio 1.1 (1-3); Calcium 8.7 mg/dL (8.6-10.3); EGFR African American 67.8 (>60); EGFR Non-African American 56.1 (>60); Globulin 3.5 g/dL (2-4); Magnesium 1.9 mg/dL (1.9-2.7); Potassium 4.2 mmol/L (3.5-5.0); Total Bilirubin 0.5 mg/dL (0.2-1.0); Total Protein 7.4 g/dL (6.4-8.9)
[2020-11-28 12:00] LABS: Troponin I 0.01 ng/mL (<0.03)
[2020-11-28 12:21] LABS: Urine Appearance Clear; Urine Bilirubin Negative (Negative); Urine Blood Negative (Negative); Urine Color Colorless; Urine Glucose Negative (Negative); Urine Ketones Negative (Negative); Urine Nitrite Negative (Negative); Urine Protein Negative (Negative); Urine Specific Gravity 1.002 (1.002-1.030); Urine Urobilinogen Negative (Negative)
[2020-11-28 12:28] LABS: TSH Ultra Thyroid Stim Horm 0.98 mcIU/mL (0.34-5.60)
[2020-11-28] MEDS ORDERED: Iodixanol (CONTRAST) 320 MG/ML 100 ML SDV IV ONE (15:03)
[2020-11-28] MEDS ORDERED: Magnesium Hydroxide LIQ 30 ML UDC PO PRN (18:53)
[2020-11-28 19:37] LABS: Rapid COVID-19 Molecular Undetected (Undetected)
[2020-11-28 22:10] LABS: HDL Cholesterol 31.1 mg/dL
[2020-11-28 22:36] LABS: Folate 13.88 ng/mL (5.90-24.80)
[2020-11-29] MEDS: Enoxaparin 40 MG/0.4 ML SYR SUBCUT SCH ×2 (00:40→19:47)
[2020-11-29 06:33] LABS: ABS Eosinophils 0.1 10^3/ul (0-0.6); ABS Lymphocytes 0.7 10^3/ul (1.0-4.8); ABS Monocytes 0.7 10^3/ul (0-0.8); ABS Neutrophils 4.3 10^3/ul (1.5-7.7); Eosinophil % 1.4 %; Hematocrit 47 % (42-52); Hemoglobin 15.9 g/dL (14.0-18.0); Lymphocyte % 11.8 %; Mean Corpuscular HGB Conc 34 g/dL (31-36); Mean Corpuscular Hemoglobin 33 pg (27-31); Mean Corpuscular Volume 96 fL (80-94); Mean Platelet Volume 9.8 fL (7.4-10.4); Nucleated Red Blood Cells % 0.1; Platelet Count 145 10^3/uL (150-450); Red Blood Count 4.86 10^6 /uL (4.18-5.48); Red Cell Distribution Width 13 % (10-15); White Blood Count 5.9 10^3/uL (3.5-10.8)
[2020-11-29 06:51] LABS: Calcium 9.1 mg/dL (8.6-10.3); EGFR African American 66.6 (>60); EGFR Non-African American 55.1 (>60)
[2020-11-30 04:25] LABS: EGFR African American 64.9 (>60); EGFR Non-African American 53.6 (>60); Potassium 4.2 mmol/L (3.5-5.0)
[2020-11-30] MEDS ORDERED: Gadoteridol (CONTRAST) 279.3 MG/ML 10 ML IV ONE (11:45)
[2020-11-30 16:13] VITALS: BP 133/94
== END 2020-11-30 17:37 | disposition home or self-care (01) | DRG 641 ==
LOC: ED 10:54 → MEDTELE 18:53 → SUATTDRO 18:53 → MEDTELE 23:11
PROVIDERS: ADMIT Hospitalist; ATTEND Hospitalist

== ENCOUNTER 2022-09-06 10:23 | Observation (INO) ==
[2022-09-06] MEDS ORDERED: Lidocaine 1% VIAL 10 MG/ML VIAL 30 ML ONE (13:00)
[2022-09-06] MEDS ORDERED: Lidocaine 1% MPF 5 ML VIAL ONE (13:02)
[2022-09-06] MEDS ORDERED: Lactated Ringers 1000 ml BAG 1,000 ML IV ONE (13:43)
[2022-09-06 14:09] LABS: ABS Lymphocytes 0.7 10^3/uL (1.0-4.8); ABS Monocytes 0.4 10^3/uL (0.0-1.1); ABS Neutrophils 4.8 10^3/uL (1.5-7.6); ABS Nucleated RBC 0.01 10^3/ul; Eosinophil % 0.7 %; Hematocrit 48.2 % (38-53); Hemoglobin 16.5 g/dL (13.2-16.3); Lymphocyte % 11.6 %; Mean Corpuscular Hemoglobin 32.6 pg (27-33); Mean Corpuscular Hgb Conc 34.2 g/dL (31-36); Mean Corpuscular Volume 95.2 fL (80-97); Mean Platelet Volume 9.4 fL (7.5-11.2); Nucleated Red Blood Cells % 0.1 /100 WBC (0.0-0.4); Platelet Count 148 10^3/uL (150-450); Red Blood Count 5.06 10^6/uL (4.06-5.63)
[2022-09-06 14:41] LABS: Albumin/Globulin Ratio 1.1 (1-3); Calcium 9.4 mg/dL (8.6-10.3); Creatinine, Serum 1.21 mg/dL (0.67-1.17); Globulin 3.6 g/dL (2-4); Potassium 4.6 mmol/L (3.5-5.0); Total Bilirubin 0.7 mg/dL (0.2-1.0); Total Protein 7.6 g/dL (6.4-8.9); eGFR CKD-EPI 64.8 (>60)
[2022-09-06 15:48] LABS: High Sensitivity Troponin 1 Hr 5 pg/mL (<20)
[2022-09-06] MEDS ORDERED: Iodixanol (CONTRAST) 320 MG/ML 100 ML SDV IV ONE (20:00)
[2022-09-06 21:51] LABS: Urine Appearance Clear; Urine Bilirubin Negative (Negative); Urine Blood Negative (Negative); Urine Color Yellow; Urine Glucose Negative (Negative); Urine Ketones Negative (Negative); Urine Nitrite Negative (Negative); Urine Protein Negative (Negative); Urine Specific Gravity 1.031 (1.002-1.030); Urine Urobilinogen Negative (Negative)
[2022-09-07] MEDS ORDERED: Enoxaparin 40 MG/0.4 ML SYR SUBCUT SCH (05:00)
[2022-09-07 13:33] VITALS: BP 118/85
== END 2022-09-07 13:55 | disposition home or self-care (01) ==
LOC: EDHOLD 10:23 → ED 10:23 → SUATTDRO 23:00 → MED 09-07 02:19
PROVIDERS: ADMIT Internal Medicine; ATTEND Internal Medicine

== ENCOUNTER 2023-09-24 14:38 | Inpatient (IN) ==
[2023-09-24 15:23] LABS: ABS Lymphocytes 0.2 10^3/uL (1.0-4.8); ABS Monocytes 0.3 10^3/uL (0.0-1.1); ABS Neutrophils 6.2 10^3/uL (1.5-7.6); Eosinophil % 0.4 %; Hematocrit 45.3 % (38-53); Hemoglobin 15.5 g/dL (13.2-16.3); Mean Corpuscular Hemoglobin 32.5 pg (27-33); Mean Corpuscular Hgb Conc 34.3 g/dL (31-36); Mean Corpuscular Volume 94.7 fL (80-97); Mean Platelet Volume 8.3 fL (7.5-11.2); Platelet Count 223 10^3/uL (150-450); Red Blood Count 4.78 10^6/uL (4.06-5.63); Red Cell Distribution Width 13.3 % (12-17); White Blood Count 6.8 10^3/uL (3.6-10.2)
[2023-09-24 15:42] LABS: ALT 18 U/L (7-52); AST 20 U/L (13-39); Albumin 3.2 g/dL (3.2-5.2); Albumin/Globulin Ratio 0.9 (1-3); Alcohol, S < 13 mg/dL (<13); Alkaline Phosphatase 83 U/L (35-149); Anion Gap 5 mmol/L (2-16); Blood Urea Nitrogen 27 mg/dL (6-24); C Reactive Protein 23.29 mg/L (<8.01); CO2 Carbon Dioxide 28 mmol/L (22-32); Calcium 8.2 mg/dL (8.6-10.3); Chloride 101 mmol/L (101-111); Creatinine, Serum 1.31 mg/dL (0.67-1.17); Globulin 3.6 g/dL (2-4); Glucose 104 mg/dL (70-100); Magnesium 1.6 mg/dL (1.9-2.7); Potassium 4.6 mmol/L (3.5-5.0); Sodium 134 mmol/L (135-145); Total Bilirubin 0.6 mg/dL (0.2-1.0); Total Protein 6.8 g/dL (6.4-8.9); eGFR CKD-EPI 58.6 (>60)
[2023-09-24 15:47] LABS: High Sens Troponin Baseline 4 pg/mL (<20)
[2023-09-24 15:56] LABS: TSH Ultra Thyroid Stim Horm 1.41 mcIU/mL (0.34-5.60)
[2023-09-24] MEDS: Lactated Ringers 1000 ml BAG 1,000 ML IV ONE ×2 (16:01→16:02)
[2023-09-24] MEDS: Iodixanol (CONTRAST) 320 MG/ML 100 ML SDV IV ONE (16:19)
[2023-09-24 17:11] LABS: High Sensitivity Troponin 1 Hr 4 pg/mL (<20)
[2023-09-24 18:10] LABS: Urine Appearance Clear; Urine Bilirubin Negative (Negative); Urine Blood Negative (Negative); Urine Color Light-Yellow; Urine Glucose Negative (Negative); Urine Ketones Negative (Negative); Urine Nitrite Negative (Negative); Urine Protein Negative (Negative); Urine Specific Gravity 1.047 (1.002-1.030); Urine Urobilinogen Negative (Negative)
[2023-09-24] MEDS: Magnesium Sulfate 2 gm BAG 2 GM/50 ML BAG IVPB ONE (18:10)
[2023-09-24] MEDS: DOXYcycline 100 MG in NS 0.9% 250 ml 250 ML IVPB ONE (18:10)
[2023-09-25 09:00] LABS: Albumin 2.8 g/dL (3.2-5.2); Albumin/Globulin Ratio 0.8 (1-3); Calcium 7.4 mg/dL (8.6-10.3); Creatinine, Serum 1.08 mg/dL (0.67-1.17); Globulin 3.5 g/dL (2-4); Potassium 4.2 mmol/L (3.5-5.0); Total Bilirubin 0.5 mg/dL (0.2-1.0); Total Protein 6.3 g/dL (6.4-8.9); eGFR CKD-EPI 73.8 (>60)
[2023-09-25] MEDS: Enoxaparin 40 MG/0.4 ML SYR SUBCUT SCH (09:19)
[2023-09-25 09:43] LABS: Magnesium 1.9 mg/dL (1.9-2.7)
[2023-09-25] MEDS: Lactated Ringers 1000 ml BAG 1,000 ML IV SCH (11:35)
[2023-09-25 12:46] LABS: Hematocrit 40.7 % (38-53); Hemoglobin 13.7 g/dL (13.2-16.3); Mean Corpuscular Hemoglobin 32.1 pg (27-33); Mean Corpuscular Hgb Conc 33.7 g/dL (31-36); Mean Corpuscular Volume 95.1 fL (80-97); Platelet Count 172 10^3/uL (150-450); Red Blood Count 4.29 10^6/uL (4.06-5.63); White Blood Count 3.7 10^3/uL (3.6-10.2)
[2023-09-25] MEDS: Ondansetron 4 mg VIAL 2 MG/ML 2 ml VIAL IV PRN (15:37)
[2023-09-26 06:16] LABS: ABS Eosinophils 0.1 10^3/uL (0.0-0.5); ABS Lymphocytes 0.6 10^3/uL (1.0-4.8); ABS Monocytes 0.5 10^3/uL (0.0-1.1); ABS Neutrophils 1.4 10^3/uL (1.5-7.6); Eosinophil % 5.3 %; Hematocrit 40.8 % (38-53); Hemoglobin 13.8 g/dL (13.2-16.3); Lymphocyte % 21.6 %; Mean Corpuscular Hemoglobin 32.2 pg (27-33); Mean Corpuscular Hgb Conc 33.9 g/dL (31-36); Mean Corpuscular Volume 94.9 fL (80-97); Mean Platelet Volume 8.4 fL (7.5-11.2); Nucleated Red Blood Cells % 0.1 %/100WBC (0.0-0.8); Platelet Count 155 10^3/uL (150-450); Red Blood Count 4.29 10^6/uL (4.06-5.63); Red Cell Distribution Width 13.3 % (12-17); White Blood Count 2.7 10^3/uL (3.6-10.2)
[2023-09-26 06:32] LABS: Calcium 7.8 mg/dL (8.6-10.3); Creatinine, Serum 0.98 mg/dL (0.67-1.17); Potassium 4.5 mmol/L (3.5-5.0)
[2023-09-26 14:01] VITALS: BP 107/93
[2023-09-27 16:15] LABS: Anaplasma phagocytophilum Negative (Negative); B. miyamotoi PCR, B Negative (Negative); Babesia divergens/MO-1 Negative (Negative); Babesia ducani Negative (Negative); Ehrlichia chaffeensis Negative (Negative); Ehrlichia ewingii/canis Negative (Negative); Ehrlichia muris eauclairensis Negative (Negative)
[2023-09-27 23:49] LABS: IgG Immunoblot Positive (Negative); IgM Immunoblot Positive (Negative)
== END 2023-09-26 16:50 | disposition home or self-care (01) | DRG 866 ==
LOC: ED 14:38 → EDHOLD 14:38 → SUATTDRO 19:38 → EDHOLD 09-25 09:13 → MEDTELE 09-25 09:50
PROVIDERS: ADMIT Internal Medicine; ATTEND Student in an Organized Health Care Education/Training Program